=== PATIENT | female | born 1935 | race Caucasian/White ===

== ENCOUNTER 2023-07-22 08:39 | Observation (INO) ==
--- NOTE | 2023-07-22 08:56 | DR.EXTPAIN ---
HPI Time seen Time Seen by Provider: 07/22/23 08:56 Complaint/Symptoms Chief Complaint Doctor Comments: 88 y/o female sent in by EMS for evaluation. Patient seen and evaluated by me here yesterday afternoon, after falling in the shower earlier in the day. Patient fine last p.m. Relative stayed with her last night. She went to check on her this morning. She found the patient awake but unable to speak. Patient was indicating she was having chest discomfort. She was diaphoretic and nonverbal. Relative helped her to the bathroom, patient collapsed on the way, was lowered to the floor, no injuries. EMS called, currently doing better. Patient now awake alert able to speak. No focal defic its. Patient does have history of dementia. Currently denying pain. Nurses notes reviewed Nurses Notes Review: Yes Source History Provided: Patient and Family Member PMH PMH Past Medical History: Dyslipidemia and ND Past Medical History Comment: Dementia Past Surgical History: Yes Surgical History: Angioplasty/Stents, Appendectomy, Cholecystectomy, Ortho Surgery and Spleenectomy Family History Family Medical History: Diabetes Mellitus and ND Social History Does patient currently use any type of tobacco product: No Alcohol Use: None Do you use any recreational Drugs:: No ROS Review of Systems Constitutional: Weakness Eyes: No Symptoms Reported ENTM: No Symptoms Reported Respiratoy: No Symptoms Reported Cardiovascular: See HPI Gastrointestinal/Abdominal: No Symptoms Reported Genitourinary: No Symptoms Reported Neurological: Weakness Musculoskeletal: No Symptoms Reported Integumentary: No Symptoms Reported All Other Systems: Reviewed and Negative PE Vital Signs Vitals: Vital Signs Temperature 97.9 F Pulse Rate 69 Pulse Rate 69 Pulse Rate 69 Pulse Rate 69 Pulse Rate 68 Pulse Rate 68 Pulse Rate 68 Pulse Rate 69 Pulse Rate 69 Pulse Rate 71 Pulse Rate 72 Pulse Rate 71 Pulse Rate 69 Pulse Rate 68 Respiratory Rate 13 Respiratory Rate 16 Respiratory Rate 17 Respiratory Rate 26 Respiratory Rate 15 Respiratory Rate 15 Respiratory Rate 10 Respiratory Rate 20 Respiratory Rate 15 Respiratory Rate 27 Respiratory Rate 20 Respiratory Rate 21 Respiratory Rate 18 Respiratory Rate 10 Blood Pressure 117/63 Blood Pressure 117/63 Blood Pressure 126/59 Blood Pressure 139/63 O2 Sat by Pulse Oximetry 99 O2 Sat by Pulse Oximetry 98 O2 Sat by Pulse Oximetry 98 O2 Sat by Pulse Oximetry 98 O2 Sat by Pulse Oximetry 100 O2 Sat by Pulse Oximetry 98 O2 Sat by Pulse Oximetry 99 O2 Sat by Pulse Oximetry 98 O2 Sat by Pulse Oximetry 96 O2 Sat by Pulse Oximetry 93 O2 Sat by Pulse Oximetry 95 O2 Sat by Pulse Oximetry 98 O2 Sat by Pulse Oximetry 98 O2 Sat by Pulse Oximetry 98 General General Appearance: Alert and In No Apparent Distress Head Head Exam: Normal Inspection, Atraumatic and Normocephalic Eyes Eye exam: PERRL and EOMI ENT ENT Exam: Normal Oropharynx and Mucous Membranes Moist Neck Neck Exam: Normal Inspection; negative Tenderness Respiratory Respiratory Exam: Normal Lung Sounds Bilat; negative Accessory Muscle Use or Respiratory Distress Cardiovascular Cardiovascular Exam: Regular Rate, Normal Rhythm and Normal Heart Sounds Abdominal Exam Abdominal Exam: Normal Bowel Sounds and Soft; negative Tenderness Extremities Extremities Exam: Full ROM; negative Tenderness Back Back Exam: Tenderness (Paralumbar region) Neurological Neurological Exam: Alert, Oriented X3 and CN II-XII Intact; negative Motor Sensory Deficit Skin Skin Exam: Warm and Dry COURSE Treatment Treatment: 88-year-old female with near syncope this a.m., was complaining of chest pain and was diaphoretic. Currently doing much better. History of dementia, not a good historian. Her son is present. Workup initiated. Labs overall acceptable. CT of the head, chest x-ray unremarkable for acute abn ormalities. Cardiac workup negative. Patient is positive for COVID. Will admit to the hospital for further evaluation in view of her near syncopal episode and possible chest pain this a.m.. Family is staying with patient as she has dementia. Dr. Arguelles aware through, his nurses, of the admission. ROR Labs Reviewed Laboratory Results Reviewed?: Yes 07/22/23 09:15 07/22/23 09:15 Laboratory: WBC 6.1 X10^3/uL (3.6-10.0) 07/22/23 09:15 RBC 4.03 X10^6/uL (3.5-5.4) 07/22/23 09:15 Hgb 12.1 g/dL (12.0-16.0) 07/22/23 09:15 Hct 36.7 % (36.0-47.0) 07/22/23 09:15 MCV 91.1 fL (80.0-100.0) 07/22/23 09:15 MCH 30.0 pg (27.0-34.0) 07/22/23 09:15 MCHC 32.9 g/dL (33.0-35.0) L 07/22/23 09:15 RDW 14.2 % (11.6-16.5) 07/22/23 09:15 Plt Count 147 X10^3/uL (150.0-450.0) L 07/22/23 09:15 MPV 9.8 fL (7.4-11.0) 07/22/23 09:15 Neut % (Auto) 62.8 % (42.0-75.0) 07/22/23 09:15 Lymph % (Auto) 20.5 % (21.0-51.0) L 07/22/23 09:15 [place] % (Auto) 16.3 % (0.0-13.0) H 07/22/23 09:15 Eos % (Auto) 0.1 % (0.9-2.9) L 07/22/23 09:15 Baso % (Auto) 0.3 % (0.2-1.0) 07/22/23 09:15 Neut # (Auto) 3.8 x10^3/uL (2.2-4.8) 07/22/23 09:15 Lymph # (Auto) 1.3 X10^3/uL (1.3-2.9) 07/22/23 09:15 [place] # (Auto) 1.0 x10^3/uL (0.3-0.8) H 07/22/23 09:15 Eos # (Auto) 0.0 x10^3/uL (0.0-0.2) 07/22/23 09:15 Baso # (Auto) 0.0 X10^3/uL (0.0-0.1) 07/22/23 09:15 Absolute Nucleated RBC 0.2 /100WBC 07/22/23 09:15 Sodium 135 mmol/L (136-145) L 07/22/23 09:15 Corrected Sodium TNP 07/22/23 09:15 Potassium 3.3 mmol/L (3.5-5.1) L 07/22/23 09:15 Chloride 100 mmol/L (98-107) 07/22/23 09:15 Carbon Dioxide 26.7 mmol/L (21-32) 07/22/23 09:15 BUN 18 mg/dL (7-18) 07/22/23 09:15 Creatinine 0.88 mg/dL (0.55-1.02) 07/22/23 09:15 Est GFR (MDRD) Af Amer > 60 (>60) 07/22/23 09:15 Est GFR (MDRD) Non-Af > 60 (>60) 07/22/23 09:15 Glucose 92 mg/dL (65-99) 07/22/23 09:15 Calcium 8.9 mg/dL (8.5-10.1) 07/22/23 09:15 Corrected Calcium 9.5 mg/dL (8.5-10.1) 07/22/23 09:15 Magnesium 1.8 mg/dL (2.0-2.9) L 07/22/23 10:59 Total Bilirubin 0.70 mg/dL (0.2-1.0) 07/22/23 09:15 AST 30 Units/L (15-37) 07/22/23 09:15 ALT 15 Units/L (12-78) 07/22/23 09:15 Alkaline Phosphatase 87 Units/L (46-116) 07/22/23 09:15 Troponin I High Sens 21.8 ng/L (4.0-60.0) 07/22/23 10:59 Total Protein 7.4 g/dL (6.4-8.2) 07/22/23 09:15 Albumin 3.3 g/dL (3.4-5.0) L 07/22/23 09:15 Globulin 4.1 g/dL (2.5-4.5) 07/22/23 09:15 Albumin/Globulin Ratio 0.8 Ratio (1.1-2.1) L 07/22/23 09:15 Lipase 34 Units/L (16-77) 07/22/23 09:15 SARS-CoV-2 (PCR) Positive (NEGATIVE) A 07/22/23 09:28 Influenza Type A (PCR) Negative (NEGATIVE) 07/22/23 09:28 Influenza Type B (PCR) Negative (NEGATIVE) 07/22/23 09:28 RSV (PCR) Negative (NEGATIVE) 07/22/23 09:28 XRAY XRAY Interpreted by: Both X-ray Results: EXAM: CHEST, 1 VIEW HISTORY: NEAR SYNCOPE; PMH:HTN PSH: CHRISTAL HIPS, GB COMPARISON: Chest radiograph 05/08/2022. TECHNIQUE: AP view of the chest FINDINGS: The cardiac and mediastinal contours are normal in size. Moderate athero sclerotic plaque of the aortic knob. Lungs are hyperexpanded. There are mild bilateral scattered interstitial opacities. No definite pleural effusion or pneumothorax. IMPRESSION: Hyperexpanded lungs suggests COPD. Interstitial opacities are likely chronic. THIS IS AN ELECTRONICALLY VERIFIED FINAL REPORT 07/22/2023 10:03 AM - Electronically signed by Candido Han MD EXAM: CHEST, 1 VIEW HISTORY: NEAR SYNCOPE; PMH:HTN PSH: CHRISTAL HIPS, GB COMPARISON: Chest radiograph 05/08/2022. TECHNIQUE: AP view of the chest FINDINGS: The cardiac and mediastinal contours are normal in size. Moderate athero sclerotic plaque of the aortic knob. Lungs are hyperexpanded. There are mild bilateral scattered interstitial opacities. No definite pleural effusion or pneumothorax. IMPRESSION: Hyperexpanded lungs suggests COPD. Interstitial opacities are likely chronic. THIS IS AN ELECTRONICALLY VERIFIED FINAL REPORT 07/22/2023 10:03 AM - Electronically signed by Candido Han MD EKG Rate: 71 [place]: Normal Rhythm: NSR ST: Nonsp Opioid Opioid Risk Tool Age (Ted box if 16-45): No History of Preadolescent Sexual Abuse: No Total: 0 Total Score Risk Category: Low Risk Copyright: Wilbert SUN predicting aberrant behaviors Discharge Plan Diagnosis Discharge Problem: Near syncope, Chest pain, COVID-19 virus infection Discharge Plan Patient Disposition: ADMITTED INPATIENT Condition: Stable
[2023-07-22] MEDS ORDERED: NS 500 ML IV 500 ML IV ONE ×2 (08:57→09:01)
--- NOTE | 2023-07-22 09:09 | EKG ---
Test Reason : syncopal episode Blood Pressure : */* mmHG Vent. Rate : 71 BPM Atrial Rate : 71 BPM P-R Int : 128 ms QRS Dur : 80 ms QT Int : 390 ms P-R-T Axes : 69 63 -41 degrees QTc Int : 423 ms Sinus rhythm with premature atrial complexes with aberrant conduction Possible Inferior infarct , age undetermined Abnormal ECG No previous ECGs available Confirmed by Zach Wilson MD ([id number]) on 07/22/2023 1:53:57 PM Referred By: Confirmed By: Zach Wilson MD
[2023-07-22 09:56] LABS: BASOPHILS % (AUTO) 0.3 % (0.2-1.0); EOSINOPHILS % (AUTO) 0.1 % (0.9-2.9); HEMATOCRIT 36.7 % (36.0-47.0); HEMOGLOBIN 12.1 g/dL (12.0-16.0); LYMPHOCYTES # (AUTO) 1.3 X10^3/uL (1.3-2.9); LYMPHOCYTES % (AUTO) 20.5 % (21.0-51.0); MEAN CORPUSCULAR HGB CONC 32.9 g/dL (33.0-35.0); MEAN CORPUSCULAR VOLUME 91.1 fL (80.0-100.0); MEAN PLATELET VOLUME 9.8 fL (7.4-11.0); MONOCYTES % (AUTO) 16.3 % (0.0-13.0); NEUTROPHILS # (AUTO) 3.8 x10^3/uL (2.2-4.8); NEUTROPHILS % (AUTO) 62.8 % (42.0-75.0); PLATELET COUNT 147 X10^3/uL (150.0-450.0); RED BLOOD COUNT 4.03 X10^6/uL (3.5-5.4); RED CELL DISTRIBUTION WIDTH 14.2 % (11.6-16.5); WHITE BLOOD COUNT 6.1 X10^3/uL (3.6-10.0)
--- NOTE | 2023-07-22 10:06 | CT ---
EXAM:BRAIN W/O CONHISTORY:TIATECHNIQUE:Axial noncontrast images with coronal and sagittal reformats. Dose reduction procedures were used with mA/kv adjusted for body size.COMPARISON:07/21/2023FINDINGS:Ventr icles are normal in size shape and position. There is decreased attenuation in the periventricular white matter suggestive of small-vessel vascular disease. Mild cortical atrophy is present likely age related. There are no focal areas of abnormal attenuation to suggest recent or remote CVA, hemorrhage, mass lesion, or extra-axial fluid collection. Visualized sinuses are clear. The calvarium is intact. If acute CVA is a strong clinical consideration MRI with diffusion imaging may be of further diagnostic value and should be considered.IMPRESSION:No acute intracranial abnormality identified. See recommendation as aboveMild cortical atrophy likely age-relatedDiffuse small-vessel vascular diseaseTHIS IS AN ELECTRONICALLY VERIFIED FINAL REPORT07/22/2023 10:03 AM - Electronically signed by Lennox Hernandez MD
--- NOTE | 2023-07-22 10:07 | RAD ---
EXAM:CHEST, 1 VIEWHISTORY:NEAR SYNCOPE; PMH:HTNPSH: CHRISTAL HIPS, GBCOMPARISON:Chest radiograph 05/08/2022.TECHNIQUE:AP view of the chestFINDINGS:The cardiac and mediastinal contours are normal in size. Moderate athero sclerotic plaque of the aortic knob. Lungs are hyperexpanded. There are mild bilateral scattered interstitial opacities. No definite pleural effusion or pneumothorax.IMPRESSION:Hyperexpanded lungs suggests COPD. Interstitial opacities are likely chronic.THIS IS AN ELECTRONICALLY VERIFIED FINAL REPORT07/22/2023 10:03 AM - Electronically signed by Candido Han MD
[2023-07-22 10:08] LABS: ALANINE AMINOTRANSFERASE 15 Units/L (12-78); ALBUMIN 3.3 g/dL (3.4-5.0); ALKALINE PHOSPHATASE 87 Units/L (46-116); ASPARTATE AMINO TRANSFERASE 30 Units/L (15-37); BLOOD UREA NITROGEN 18 mg/dL (7-18); CALCIUM 8.9 mg/dL (8.5-10.1); CARBON DIOXIDE 26.7 mmol/L (21-32); CHLORIDE 100 mmol/L (98-107); COR CA(FOR HYPOALB) 9.5 mg/dL (8.5-10.1); CREATININE 0.88 mg/dL (0.55-1.02); GLUCOSE 92 mg/dL (65-99); LIPASE 34 Units/L (16-77); POTASSIUM 3.3 mmol/L (3.5-5.1); SODIUM 135 mmol/L (136-145); TOTAL PROTEIN 7.4 g/dL (6.4-8.2); eGFR NON BLACK RACES > 60 (>60)
[2023-07-22] MEDS ORDERED: CONSULT PHARMACY - POTASSIUM & MAGNESIUM XX SCH ×2 (12:07→14:00)
[2023-07-22] MEDS ORDERED: NS 1,000 ML IV 1,000 ML IV SCH (13:00)
[2023-07-22] MEDS ORDERED: NS + KCL 20 MEQ/L 1,000 ML IV SCH (14:00)
[2023-07-22] MEDS: NS + KCL 20 MEQ/L 1,000 ML with MAGNESIUM SULFATE 50% INJ VIAL 1 G IV SCH ×2 (14:27)
[2023-07-22] MEDS: SOLU-Medrol 40 MG VIAL IVP SCH ×3 (14:29→21:35)
[2023-07-22 16:55] LABS: BILIRUBIN,URINE NEGATIVE (NEGATIVE); BLOOD/HEMOGLOBIN,URINE NEGATIVE (NEGATIVE); GLUCOSE, URINE NEGATIVE (NEGATIVE); KETONES,URINE 1+ (NEGATIVE); LEUKOCYTE ESTERASE ,URINE NEGATIVE (NEGATIVE); NITRITES,URINE NEGATIVE (NEGATIVE); PROTEIN,URINE 1+ (NEGATIVE); UROBILINOGEN,URINE NORMAL (NORMAL)
[2023-07-22 17:11] LABS: APPEARANCE,URINE CLEAR (CLEAR); COLOR,URINE YELLOW (YELLOW); RBC,URINE NONE SEEN /HPF (0-3); SQUAMOUS EPITHELIAL CELL,UR RARE /HPF (NEGATIVE)
[2023-07-22 17:12] LABS: BACTERIA,URINE TRACE /HPF (NEGATIVE); HYALINE CASTS, URINE RARE /LPF (NEGATIVE)
[2023-07-22 17:38] VITALS: BMI 19.2
[2023-07-22] MEDS: LIPITOR TAB 10 MG PO SCH (20:47)
[2023-07-22] MEDS ORDERED: PLAVIX ONE (21:18)
[2023-07-22] MEDS: PLAVIX PO SCH (21:23)
[2023-07-23] MEDS: NS + KCL 20 MEQ/L 1,000 ML with MAGNESIUM SULFATE 50% INJ VIAL 1 G IV SCH ×4 (01:03→03:41)
[2023-07-23] MEDS: SOLU-Medrol 40 MG VIAL IVP SCH ×3 (05:08→21:22)
[2023-07-23 06:54] LABS: BASOPHILS % (AUTO) 0.1 % (0.2-1.0); HEMATOCRIT 37.2 % (36.0-47.0); HEMOGLOBIN 12.1 g/dL (12.0-16.0); LYMPHOCYTES # (AUTO) 0.7 X10^3/uL (1.3-2.9); LYMPHOCYTES % (AUTO) 16.8 % (21.0-51.0); MEAN CORPUSCULAR HEMOGLOBIN 29.7 pg (27.0-34.0); MEAN CORPUSCULAR HGB CONC 32.5 g/dL (33.0-35.0); MEAN CORPUSCULAR VOLUME 91.4 fL (80.0-100.0); MEAN PLATELET VOLUME 9.9 fL (7.4-11.0); MONOCYTES # (AUTO) 0.3 x10^3/uL (0.3-0.8); MONOCYTES % (AUTO) 6.2 % (0.0-13.0); NEUTROPHILS # (AUTO) 3.2 x10^3/uL (2.2-4.8); NEUTROPHILS % (AUTO) 76.9 % (42.0-75.0); PLATELET COUNT 137 X10^3/uL (150.0-450.0); RED BLOOD COUNT 4.08 X10^6/uL (3.5-5.4); RED CELL DISTRIBUTION WIDTH 14.4 % (11.6-16.5); WHITE BLOOD COUNT 4.2 X10^3/uL (3.6-10.0)
[2023-07-23 07:01] LABS: ALANINE AMINOTRANSFERASE 16 Units/L (12-78); ALBUMIN 3.1 g/dL (3.4-5.0); ALKALINE PHOSPHATASE 85 Units/L (46-116); ASPARTATE AMINO TRANSFERASE 29 Units/L (15-37); BLOOD UREA NITROGEN 14 mg/dL (7-18); CALCIUM 8.5 mg/dL (8.5-10.1); CARBON DIOXIDE 27.4 mmol/L (21-32); CHLORIDE 105 mmol/L (98-107); COR CA(FOR HYPOALB) 9.2 mg/dL (8.5-10.1); COR NA(FOR HYPERGLY) 140 mmol/L (136-145); CREATININE 0.69 mg/dL (0.55-1.02); GLUCOSE 146 mg/dL (65-99); MAGNESIUM 2.4 mg/dL (2.0-2.9); POTASSIUM 3.7 mmol/L (3.5-5.1); SODIUM 139 mmol/L (136-145); TOTAL PROTEIN 7.4 g/dL (6.4-8.2); eGFR NON BLACK RACES > 60 (>60)
[2023-07-23] MEDS ORDERED: DUONEB 0.5 MG/3 MG (3 mL) NEB PRN (09:52)
[2023-07-23] MEDS: LOVENOX INJ 40 MG SYR SC SCH (10:03)
[2023-07-23] MEDS: PLAVIX PO SCH ×2 (10:32→20:51)
[2023-07-23] MEDS: LEVAQUIN PREMIX IV 500 MG 500 MG/100 ML BAG IV SCH (10:40)
--- NOTE | 2023-07-23 11:14 | DR.H&P ---
H&P - History & Physical for Day of: H&P Date: 07/22/23 - Chief Complaint Chief Complaint: FALLS, AMS, SOB - History of Present Illness History of Present Illness: IS A 88 YEAR OLD PATIENT OF OURS. HER MEDICAL HX INCLUDES: DYSLIPIDEMIA, MA, DEMENTIA, CARDIAC STENTS, APPENDECTOMY, CHOLECYSTECTOMY, AND SPLEENECTOMY. SHE WAS BROUGHT TO THE ER VIA EMS FOR EVALUATION DUE TO RECENT FALLS, ALTERED MENTAL STATUS, DIAPHORESIS, AND SLURRED SPEECH. PATIENTS DAUGHTER REPORTS THAT PATIENT FELL IN THE SHOWER ON 07/19 AND AGAIN ON 07/20. DAUGHTER REPORTS THAT WHEN SHE CHECKED ON HER MOM ON THE MORNING OF 07/22, PATIENT WAS DIAPHORETIC AND HAD SLURRED SPEECH. DAUGHTER HELPED THE PATIENT AMBULATE TO THE BATHROOM AND PATIENT COLLAPSED ON THE WAY THERE. EMS WAS CALLED. ON ARRIVAL TO THE HOSPITAL, PATIENT WAS AWAKE, ALERT, AND ABLE TO SPEAK. NO FOCAL DEFICITS WERE NOTED. PATIENT DOES DENY PAIN, BUT ADMITS TO WEAKNESS AND OCCASIONAL SHORTNESS OF BREATH. ON ARRIVAL TO THE HOSPITAL, HER VITALS WERE: 97.9-69-18-98%-139/63. LABS WERE OBTAINED. WBC 6.1, RBC 4.03, HGB 12.1, HCT 36.7, PLT COUNT 147, D-DIMER 3.33, SODIUM 135, POTASSIUM 3.3, CHLORIDE 100, BUN 18, CREATININE 0.88, GLUCOSE 92, CALCIUM 8.9, MAGNESIUM 1.8, TOTAL BILI 0.70, AST 30, ALT 15, ALK PHOS 87, TROPONIN 22.8, TOTAL PROTEIN 7.4, ALBUMIN 3.3, D- DIMER 3.33. URINALYSIS WAS OBTAINED AND WAS UNREMARKABLE. COVID-19 WAS POSITIVE. INFLUENZA AND RSV NEGATIVE. A CHEST XRAY WAS OBTAINED AND REVEALED: Hyperexpanded lungs suggests COPD. Interstitial opacities are likely chronic. BRAIN CT WAS OBTAINED AND REVEALED: No acute intracranial abnormality identified. Mild cortical atrophy likely age-related. Diffuse small-vessel vascular disease. EKG REVEALED: SINUS RHYTHM WITH PREMATURE ATRIAL COMPLEXES, HR 71 BPM. IN THE ER, SHE WAS GIVEN A NORMAL SALINE BOLUS AND THEN STARTED ON N ORMAL SALINE WITH POTASSIUM AT 75 ML/HR. SHE WAS ADMITTED TO THE HOSPITAL OBSERVATION STATUS FOR FURTHER EVALUATION AND TREATMENT OF COVID-19, ACUTE BRONCHITIS, GENERALIZED WEAKNESS, RECENT FALL, SYNCOPE. SHE WAS STARTED ON NORMAL SALINE WITH 20MEQ POTASSIUM AT 75 ML/HR, LEVAQUIN 500MG IV DAILY, PAXLOVID, SOLU-MEDROL 40MG IV Q8H, DUONEBS TID PRN, LOVENOX 75MG DAILY. WE WILL RESUME HER HOME MEDICATIONS OF LIPITOR, PLAVIX, AND ZYPREXA. OTHERWISE, WE WILL FOLLOW UP WITH AM LABS AND CONTINUE TO MONITOR. TIME SPENT ON CLINICAL ASSESSMENT, REVIEWING LABS AND IMAGING, DECISION MAKING, AND DOCUMENTATION GREATER THAN 75 MINUTES. - Past Medical History Past Medical History: Dementia, Dyslipidemia, MA - Past Surgical History Surgical History: Appendectomy, Cholecystectomy, Ortho Surgery - Family History Family Medical History: Diabetes Mellitus, Cancer, MA, Coronary Artery Disease - Social History Does patient currently use any type of tobacco product: No Have you used tobacco products in the last 12 months: No Type of Tobacco Use: None Does any household member use tobacco: No Alcohol Use: None Drug Use: None - Review of Systems Constitutional: Weakness Eyes: No Symptoms Reported ENT: No Symptoms Reported Respiratory: Shortness of Breath, SOB with Excertion Cardiovascular: No Symptoms Reported Gastrointestinal: No Symptoms Reported Genitourinary: No Symptoms Reported Musculoskeletal: No Symptoms Reported Skin: No Symptoms Reported Neurological: See HPI, Weakness, Change in Speech - Physical Exam Vital Signs: Vital Signs Temperature 98.7 F Temperature 97.6 F Temperature 96 F Temperature 95.9 F Pulse Rate [Left Brachial] 64 Pulse Rate [Left Brachial] 55 Respiratory Rate 20 Respiratory Rate 18 Blood Pressure [Left Arm] 142/62 Blood Pressure [Left Arm] 120/83 O2 Sat by Pulse Oximetry 97 O2 Sat by Pulse Oximetry 97 Oriented: Normal Eyes: Normal Ear: Normal Nose: Normal Throat: Normal Respiratory: Diminished Throughout Cardiovascular: Normal : Normal Auscultation: Bowel Sounds: Normal Palpation: Normal Tenderness: Normal Skin: Normal Musculoskeletal: Normal Psychiatric: Normal Mood Description: Calm Affect: Normal Speech Pattern: Clear - Assessment/Plan (1) COVID-19 virus infection Status: Acute Plan: ADMIT, SUPPLEMENTAL OXYGEN, NORMAL SALINE WITH 20MEQ POTASSIUM AT 75 ML/HR, LEVAQUIN 500MG IV DAILY, PAXLOVID, SOLU-MEDROL 40MG IV Q8H, DUONEBS TID PRN, LOVENOX 75MG DAILY. WE WILL RESUME HER HOME MEDICATIONS OF LIPITOR, PLAVIX, AND ZYPREXA. (2) Acute bronchitis Qualifiers: Bronchitis organism: unspecified organism Qualified Code(s): J20.9 - Acute bronchitis, unspecified Status: Acute (3) History of recent fall Status: Acute (4) Near syncope Status: Acute (5) Generalized weakness Status: Acute (6) Dementia Qualifiers: Dementia type: unspecified type Dementia severity: unspecified severity Dementia behavioral or psychological symptom: without behavioral, psychotic, or mood disturbance or anxiety Qualified Code(s): F03.90 - Unspecified dementia, unspecified severity, without behavioral disturbance, psychotic disturbance, mood disturbance, and anxiety Status: Chronic (7) Dyslipidemia Status: Chronic (8) CAD (coronary artery disease) Qualifiers: Coronary Disease-Associated Artery/Lesion type: [place] artery [place] vs. transplanted heart: [place] heart Associated angina: unspecified whether angina present Qualified Code(s): I25.10 - Atherosclerotic heart disease of [place] coronary artery without angina pectoris Status: Chronic - Allergies Allergies/Adverse Reactions: Allergies Allergy/AdvReac Type Severity Reaction Status Date / Time No Known Allergies Allergy Verified 07/21/23 15:03 - Medications Home Medications: Home Medications Medication Instructions Recorded Confirmed atorvastatin 10 mg tablet 10 mg PO QDAY 07/21/23 07/22/23 clopidogrel 75 mg tablet 75 mg PO QDAY 07/21/23 07/22/23 olanzapine 2.5 mg tablet 2.5 mg PO QPM 07/21/23 07/22/23 Previous Rx's Medication Instructions Recorded nirmatrelvir 300 mg (150 mg See Rx Instructions .Route 07/23/23 x2)-ritonavir 100 mg tablet,dose .COMPLEX #1 ea pack (Paxlovid)
--- NOTE | 2023-07-23 12:27 | PCM.PROG ---
Progress Note - Progress Note for Day of Date of Exam: 07/23/23 - Subjective Subjective: IS CURRENTLY OBSERVATION STATUS FOR TREATMENT OF COVID- 19, ACUTE BRONCHITIS, RECENT FALL, NEAR SYNCOPE, AND GENERALIZED WEAKNESS. MEDICAL HX INCLUDES: DEMENTIA, DYSLIPIDEMIA, HX OF ME. TODAY, PATIENT IS ALERT AND ORIENTED, LYING IN BED ON MORNING ROUNDS. SHE CONTINUES TO COMPLAIN OF WEAKNESS AND SHORTNESS OF BREATH AT TIMES. SHE HAS HAD AN OCCASIONAL COUGH. ON EXAMINATION, HEART IS REGULAR IN RATE AND RHYTHM. BILATERAL LUNGS ARE NOTED WITH DIMINISHED LUNG SOUNDS THROUGHOUT. ABDOMEN IS ROUND, SOFT, AND NON-TENDER WITH NORMAL BOWEL SOUNDS NOTED IN ALL QUADRANTS. GOOD RANGE OF MOTION NOTED TO UPPER AND LOWER EXTREMITIES WITH NO EDEMA NOTED. HER VITALS THIS MORNING ARE: 98.7-64 -20-97%-142/62. LABS WERE OBTAINED. WBC 4.2, RBC 4.08, HGB 12.1, HCT 37.2, PLT COUNT 137, SODIUM 139, POTASSIUM 3.7, CHLORIDE 105, BUN 14, CREATININE 0.69, GLUCOSE 146, CALCIUM 8.5, MAGNESIUM 2.4, TOTAL BILI 0.50, AST 29, ALT 16, ALK PHOS 85, CRP 48, BNP 221, TOTAL PROTEIN 7.4, ALBUMIN 3.1. SHE IS CURRENTLY RECEIVING NORMAL SALINE WITH 20MEQ POTASSIUM AT 75 ML/HR, LEVAQUIN 500MG IV DAILY, PAXLOVID, SOLU-MEDROL 40MG IV Q8H, DUONEBS TID PRN, LOVENOX 75MG DAILY. WE RESUMED HER HOME MEDICATIONS OF LIPITOR, PLAVIX, AND ZYPREXA. OTHERWISE, WE PLAN TO FOLLOW UP WITH AM LABS AND CONTINUE TO MONITOR. TIME SPENT ON CLINICAL ASSESSMENT, REVIEWING LABS AND IMAGING, DECISION MAKING, AND DOCUMENTATION GRE ATER THAN 45 MINUTES. - Past Medical Family Social History Past Med/Fam/Surg Hx: No changes since H&P Allergies: Allergies No Known Allergies Allergy (Verified 07/21/23 15:03) - Review of Systems ROS: No change since H&P - Vital Signs and I&O's Vital Signs: Vital Signs Temperature 98.7 F Temperature 97.6 F Temperature 96 F Temperature 95.9 F Pulse Rate [Left Brachial] 64 Respiratory Rate 20 Blood Pressure [Left Arm] 142/62 O2 Sat by Pulse Oximetry 97 Intake and Output: Intake & Output 07/21/23 07/22/23 07/23/23 07/24/23 11:59 11:59 11:59 11:59 Intake Total 2455 / 2455 Balance 2455 / 2455 - Physical Exam Oriented: Normal Eyes: Normal Ear: Normal Nose: Normal Throat: Normal Cardiovascular: Normal : Normal Auscultation: Bowel Sounds: Normal Palpation: Normal Tenderness: Normal Skin: Normal Musculoskeletal: Normal Psychiatric: Normal Mood Description: Calm Affect: Normal Speech Pattern: Clear - Laboratory and Diagnostics Result Diagrams: 07/23/23 05:17 07/23/23 05:17 Labs: Laboratory WBC 4.2 X10^3/uL (3.6-10.0) 07/23/23 05:17 RBC 4.08 X10^6/uL (3.5-5.4) 07/23/23 05:17 Hgb 12.1 g/dL (12.0-16.0) 07/23/23 05:17 Hct 37.2 % (36.0-47.0) 07/23/23 05:17 MCV 91.4 fL (80.0-100.0) 07/23/23 05:17 MCH 29.7 pg (27.0-34.0) 07/23/23 05:17 MCHC 32.5 g/dL (33.0-35.0) L 07/23/23 05:17 RDW 14.4 % (11.6-16.5) 07/23/23 05:17 Plt Count 137 X10^3/uL (150.0-450.0) L 07/23/23 05:17 MPV 9.9 fL (7.4-11.0) 07/23/23 05:17 Neut % (Auto) 76.9 % (42.0-75.0) H 07/23/23 05:17 Lymph % (Auto) 16.8 % (21.0-51.0) L 07/23/23 05:17 [place] % (Auto) 6.2 % (0.0-13.0) 07/23/23 05:17 Eos % (Auto) 0.0 % (0.9-2.9) L 07/23/23 05:17 Baso % (Auto) 0.1 % (0.2-1.0) L 07/23/23 05:17 Neut # (Auto) 3.2 x10^3/uL (2.2-4.8) 07/23/23 05:17 Lymph # (Auto) 0.7 X10^3/uL (1.3-2.9) L 07/23/23 05:17 [place] # (Auto) 0.3 x10^3/uL (0.3-0.8) 07/23/23 05:17 Eos # (Auto) 0.0 x10^3/uL (0.0-0.2) 07/23/23 05:17 Baso # (Auto) 0.0 X10^3/uL (0.0-0.1) 07/23/23 05:17 Absolute Nucleated RBC 0.1 /100WBC 07/23/23 05:17 D-Dimer 3.33 ug/ml (0.0-0.57) H 07/23/23 05:17 Sodium 139 mmol/L (136-145) 07/23/23 05:17 Corrected Sodium 140 mmol/L (136-145) 07/23/23 05:17 Potassium 3.7 mmol/L (3.5-5.1) 07/23/23 05:17 Chloride 105 mmol/L (98-107) 07/23/23 05:17 Carbon Dioxide 27.4 mmol/L (21-32) 07/23/23 05:17 BUN 14 mg/dL (7-18) 07/23/23 05:17 Creatinine 0.69 mg/dL (0.55-1.02) 07/23/23 05:17 Est GFR (MDRD) Af Amer > 60 (>60) 07/23/23 05:17 Est GFR (MDRD) Non-Af > 60 (>60) 07/23/23 05:17 Glucose 146 mg/dL (65-99) H 07/23/23 05:17 Lactic Acid 0.8 mmol/L (0.4-2.0) 07/23/23 05:25 Calcium 8.5 mg/dL (8.5-10.1) 07/23/23 05:17 Corrected Calcium 9.2 mg/dL (8.5-10.1) 07/23/23 05:17 Magnesium 2.4 mg/dL (2.0-2.9) 07/23/23 05:17 Total Bilirubin 0.50 mg/dL (0.2-1.0) 07/23/23 05:17 AST 29 Units/L (15-37) 07/23/23 05:17 ALT 16 Units/L (12-78) 07/23/23 05:17 Alkaline Phosphatase 85 Units/L (46-116) 07/23/23 05:17 Troponin I High Sens 21.8 ng/L (4.0-60.0) 07/22/23 10:59 C-Reactive Protein 48.00 mg/L (0-3.0) H 07/23/23 05:17 B-Natriuretic Peptide 221 pg/mL (0-79) H 07/23/23 05:17 Total Protein 7.4 g/dL (6.4-8.2) 07/23/23 05:17 Albumin 3.1 g/dL (3.4-5.0) L 07/23/23 05:17 Globulin 4.3 g/dL (2.5-4.5) 07/23/23 05:17 Albumin/Globulin Ratio 0.7 Ratio (1.1-2.1) L 07/23/23 05:17 Lipase 34 Units/L (16-77) 07/22/23 09:15 Specimen Type Clean catch urine 07/22/23 16:20 Urine Color Yellow (YELLOW) 07/22/23 16:20 Urine Appearance Clear (CLEAR) 07/22/23 16:20 Urine pH 5.0 (5.0 - 8.0) 07/22/23 16:20 Ur Specific [place] 1.020 (1.000-1.030) 07/22/23 16:20 Urine Protein 1+ (NEGATIVE) 07/22/23 16:20 Urine Glucose (UA) Negative (NEGATIVE) 07/22/23 16:20 Urine Ketones 1+ (NEGATIVE) 07/22/23 16:20 Urine Blood Negative (NEGATIVE) 07/22/23 16:20 Urine Nitrite Negative (NEGATIVE) 07/22/23 16:20 Urine Bilirubin Negative (NEGATIVE) 07/22/23 16:20 Urine Urobilinogen Normal (NORMAL) 07/22/23 16:20 Ur Leukocyte Esterase Negative (NEGATIVE) 07/22/23 16:20 Urine RBC None seen /HPF (0-3) 07/22/23 16:20 Urine WBC 3-5 /HPF (0-5) 07/22/23 16:20 Ur Squamous Epith Cells Rare /HPF (NEGATIVE) 07/22/23 16:20 Amorphous Sediment Trace /HPF (NEGATIVE) 07/22/23 16:20 Urine Bacteria Trace /HPF (NEGATIVE) 07/22/23 16:20 Hyaline Casts Rare /LPF (NEGATIVE) 07/22/23 16:20 Urine Mucus Rare /HPF (NEGATIVE) 07/22/23 16:20 Ur Culture Indicated? No/not indicated 07/22/23 16:20 SARS-CoV-2 (PCR) Positive (NEGATIVE) A 07/22/23 09:28 Influenza Type A (PCR) Negative (NEGATIVE) 07/22/23 09:28 Influenza Type B (PCR) Negative (NEGATIVE) 07/22/23 09:28 RSV (PCR) Negative (NEGATIVE) 07/22/23 09:28 - Plan (1) COVID-19 virus infection Status: Acute Plan: SUPPLEMENTAL OXYGEN, NORMAL SALINE WITH 20MEQ POTASSIUM AT 75 ML/HR, LEVAQUIN 500MG IV DAILY, PAXLOVID, SOLU-MEDROL 40MG IV Q8H, DUONEBS TID PRN, LOVENOX 75MG DAILY. WE WILL RESUME HER HOME MEDICATIONS OF LIPITOR, PLAVIX, AND ZYPREXA. (2) Acute bronchitis Status: Acute Qualifiers: Bronchitis organism: unspecified organism Qualified Code(s): J20.9 - Acute bronchitis, unspecified (3) History of recent fall Status: Acute (4) Near syncope Status: Acute (5) Generalized weakness Status: Acute (6) Dementia Status: Chronic Qualifiers: Dementia type: unspecified type Dementia severity: unspecified severity Dementia behavioral or psychological symptom: without behavioral, psychotic, or mood disturbance or anxiety Qualified Code(s): F03.90 - Unspecified dementia, unspecified severity, without behavioral disturbance, psychotic disturbance, mood disturbance, and anxiety (7) Dyslipidemia Status: Chronic (8) CAD (coronary artery disease) Status: Chronic Qualifiers: Coronary Disease-Associated Artery/Lesion type: [place] artery [place] vs. transplanted heart: [place] heart Associated angina: unspecified whether angina present Qualified Code(s): I25.10 - Atherosclerotic heart disease of [place] coronary artery without angina pectoris
[2023-07-23] MEDS: PATIENT'S HOME MEDICATION PO SCH ×2 (15:13→20:51)
[2023-07-23] MEDS: NS + KCL 20 MEQ/L 1,000 ML IV SCH (15:53)
[2023-07-23] MEDS: LIPITOR TAB 10 MG PO SCH (20:51)
[2023-07-24] MEDS: NS + KCL 20 MEQ/L 1,000 ML IV SCH ×3 (01:11→13:23)
[2023-07-24] MEDS: SOLU-Medrol 40 MG VIAL IVP SCH ×3 (05:10→21:17)
[2023-07-24 06:16] LABS: BASOPHILS % (AUTO) 0.1 % (0.2-1.0); HEMATOCRIT 32.9 % (36.0-47.0); LYMPHOCYTES # (AUTO) 0.7 X10^3/uL (1.3-2.9); LYMPHOCYTES % (AUTO) 5.5 % (21.0-51.0); MEAN CORPUSCULAR HGB CONC 33.4 g/dL (33.0-35.0); MEAN CORPUSCULAR VOLUME 89.8 fL (80.0-100.0); MEAN PLATELET VOLUME 9.9 fL (7.4-11.0); MONOCYTES # (AUTO) 0.4 x10^3/uL (0.3-0.8); MONOCYTES % (AUTO) 3.3 % (0.0-13.0); NEUTROPHILS # (AUTO) 10.9 x10^3/uL (2.2-4.8); NEUTROPHILS % (AUTO) 91.1 % (42.0-75.0); PLATELET COUNT 139 X10^3/uL (150.0-450.0); RED BLOOD COUNT 3.66 X10^6/uL (3.5-5.4); RED CELL DISTRIBUTION WIDTH 13.9 % (11.6-16.5); WHITE BLOOD COUNT 11.9 X10^3/uL (3.6-10.0)
[2023-07-24 06:36] LABS: ALANINE AMINOTRANSFERASE 17 Units/L (12-78); ALBUMIN 2.9 g/dL (3.4-5.0); ALKALINE PHOSPHATASE 77 Units/L (46-116); ASPARTATE AMINO TRANSFERASE 29 Units/L (15-37); BLOOD UREA NITROGEN 13 mg/dL (7-18); CALCIUM 8.3 mg/dL (8.5-10.1); CARBON DIOXIDE 22.1 mmol/L (21-32); CHLORIDE 107 mmol/L (98-107); COR CA(FOR HYPOALB) 9.2 mg/dL (8.5-10.1); COR NA(FOR HYPERGLY) 139 mmol/L (136-145); CREATININE 0.76 mg/dL (0.55-1.02); GLUCOSE 142 mg/dL (65-99); MAGNESIUM 2.1 mg/dL (2.0-2.9); POTASSIUM 3.8 mmol/L (3.5-5.1); SODIUM 138 mmol/L (136-145); TOTAL PROTEIN 6.9 g/dL (6.4-8.2); eGFR NON BLACK RACES > 60 (>60)
[2023-07-24 07:15] LABS: BAND NEUTROPHILS % 11 % (0-10); PLATELET MORPHOLOGY COMMENT NORMAL (NORMAL)
--- NOTE | 2023-07-24 09:03 | RAD ---
EXAM:Portable chestHISTORY:Shortness of breathCOMPARISON:07/22/2023FINDINGS:Hear t size is normal. Kera are normal. Aorta is calcified. Biapical pleural-parenchymal scarring is present and unchanged. Lungs are mildly hyperinflated but free of acute alveolar infiltrates. Mild chronic interstitial lung changes are present. No pleural effusions are identified. Bony thorax is unremarkable.IMPRESSION:No significant change from the prior examinationTHIS IS AN ELECTRONICALLY VERIFIED FINAL REPORT07/24/2023 8:59 AM - Electronically signed by Lennox Hernandez MD
[2023-07-24] MEDS: LOVENOX INJ 40 MG SYR SC SCH (10:45)
[2023-07-24] MEDS: LEVAQUIN PREMIX IV 500 MG 500 MG/100 ML BAG IV SCH (10:45)
[2023-07-24] MEDS: PLAVIX PO SCH (10:46)
[2023-07-24] MEDS: PATIENT'S HOME MEDICATION PO SCH ×2 (10:46→21:55)
--- NOTE | 2023-07-24 11:18 | PCM.PROG ---
Progress Note - Progress Note for Day of Date of Exam: 07/24/23 - Subjective Subjective: IS CURRENTLY OBSERVATION STATUS FOR TREATMENT OF COVID- 19, ACUTE BRONCHITIS, RECENT FALL, NEAR SYNCOPE, AND GENERALIZED WEAKNESS. MEDICAL HX INCLUDES: DEMENTIA, DYSLIPIDEMIA, HX OF GA. TODAY, PATIENT IS ALERT AND ORIENTED, LYING IN BED ON MORNING ROUNDS. SHE CONTINUES TO COMPLAIN OF WEAKNESS, AND SHORTNESS OF BREATH AT TIMES. SHE HAS HAD AN OCCASIONAL COUGH AND ALSO REPORTS GENERALIZED BODY ACHES. ON EXAMINATION, SCATTERED BRUISING NOTED. HEART IS REGULAR IN RATE AND RHYTHM. BILATERAL LUNGS ARE NOTED WITH DIMINISHED LUNG SOUNDS THROUGHOUT. ABDOMEN IS ROUND, SOFT, AND NON-TENDER WITH NORMAL BOWEL SOUNDS NOTED IN ALL QUADRANTS. GOOD RANGE OF MOTION NOTED TO UPPER AND LOWER EX TREMITIES WITH NO EDEMA NOTED. THERE IS BRUISING AND TENDERNESS OF LOWER EXTREMITIES AND FEET NOTED. HER VITALS THIS MORNING ARE: 98.5-65-20-95%-140/65. LABS WERE OBTAINED. WBC 11.9, RBC 3.66, HGB 11.0, HCT 32.9, PLT COUNT 139, D- DIMER 3.33, SODIUM 138, POTASSIUM 3.8, CHLORIDE 107, CARBON DIOXIDE 22.1, BUN 13, CREATININE 0.76, GLUCOSE 142, CALCIUM 8.3, MAGNESIUM 2.1, TOTAL BILI 0.40, AST 29, ALT 17, ALK PHOS 77, CRP 22.20, BNP 509, TOTAL PROTEIN 6.9, ALBUMIN 2.9. A CHEST XRAY WAS REPEATED AND REVEALED: Heart size is normal. Kera are normal. Aorta is calcified. Biapical pleural-parenchymal scarring is present and unchanged. Lungs are mildly hyperinflated but free of acute alveolar infiltr ates. Mild chronic interstitial lung changes are present. No pleural effusions are identified. Bony thorax is unremarkable. SHE IS CURRENTLY RECEIVING NORMAL SALINE WITH 20MEQ POTASSIUM AT 75 ML/HR, LEVAQUIN 500MG IV DAILY, PAXLOVID, SOLU-MEDROL 40MG IV Q8H, DUONEBS TID PRN, LOVENOX 75MG DAILY. WE RESUMED HER HOME MEDICATIONS OF LIPITOR, PLAVIX, AND ZYPREXA. WE WILL OBTAIN A CHEST CTA TO RULE OUT PE AND LOWER EXTREMITY VENOUS DOPPLERS TO RULE OUT DVT. WE WILL HAVE PHYSICAL THERAPY EVALUATE HER. OTHERWISE, WE PLAN TO FOLLOW UP WITH AM LABS AND CONTINUE TO MONITOR. TIME SPENT ON CLINICAL ASSESSMENT, REVIEWING LABS AND IMAGING, DECISION MAKING, AND DOCUMENTATION GREATER THAN 45 MINUTES. - Past Medical Family Social History Past Med/Fam/Surg Hx: No changes since H&P Allergies: Allergies No Known Allergies Allergy (Verified 07/21/23 15:03) - Review of Systems ROS: No change since H&P - Vital Signs and I&O's Vital Signs: Vital Signs Temperature 97.5 F Temperature 97.5 F Pulse Rate [Left Brachial] 65 Pulse Rate [Left Brachial] 89 Respiratory Rate 20 Respiratory Rate 20 Blood Pressure [Left Arm] 142/75 Blood Pressure [Right Arm] 140/65 O2 Sat by Pulse Oximetry 95 O2 Sat by Pulse Oximetry 99 Intake and Output: Intake & Output 07/21/23 07/22/23 07/23/23 07/24/23 11:59 11:59 11:59 11:59 Intake Total 2455 / 2455 4339 / 4339 Output Total 500 / 500 Balance 2455 / 2455 3839 / 3839 - Physical Exam Oriented: Normal Eyes: Normal Ear: Normal Nose: Normal Throat: Normal Cardiovascular: Normal : Normal Auscultation: Bowel Sounds: Normal Palpation: Normal Tenderness: Normal Skin: Normal Musculoskeletal: Normal Psychiatric: Normal Mood Description: Calm Affect: Normal Speech Pattern: Clear, Appropriate - Laboratory and Diagnostics Result Diagrams: 07/24/23 05:40 07/24/23 05:40 Labs: Laboratory WBC 11.9 X10^3/uL (3.6-10.0) H 07/24/23 05:40 RBC 3.66 X10^6/uL (3.5-5.4) 07/24/23 05:40 Hgb 11.0 g/dL (12.0-16.0) L 07/24/23 05:40 Hct 32.9 % (36.0-47.0) L 07/24/23 05:40 MCV 89.8 fL (80.0-100.0) 07/24/23 05:40 MCH 30.0 pg (27.0-34.0) 07/24/23 05:40 MCHC 33.4 g/dL (33.0-35.0) 07/24/23 05:40 RDW 13.9 % (11.6-16.5) 07/24/23 05:40 Plt Count 139 X10^3/uL (150.0-450.0) L 07/24/23 05:40 Plt Count Comment Decreased (ADEQUATE) A 07/24/23 05:40 MPV 9.9 fL (7.4-11.0) 07/24/23 05:40 Neut % (Auto) 91.1 % (42.0-75.0) H 07/24/23 05:40 Lymph % (Auto) 5.5 % (21.0-51.0) L 07/24/23 05:40 [place] % (Auto) 3.3 % (0.0-13.0) 07/24/23 05:40 Eos % (Auto) 0.0 % (0.9-2.9) L 07/24/23 05:40 Baso % (Auto) 0.1 % (0.2-1.0) L 07/24/23 05:40 Neut # (Auto) 10.9 x10^3/uL (2.2-4.8) H 07/24/23 05:40 Lymph # (Auto) 0.7 X10^3/uL (1.3-2.9) L 07/24/23 05:40 [place] # (Auto) 0.4 x10^3/uL (0.3-0.8) 07/24/23 05:40 Eos # (Auto) 0.0 x10^3/uL (0.0-0.2) 07/24/23 05:40 Baso # (Auto) 0.0 X10^3/uL (0.0-0.1) 07/24/23 05:40 Absolute Nucleated RBC 0.0 /100WBC 07/24/23 05:40 Total Counted 100 07/24/23 05:40 Neutrophils % (Manual) 85 % (39-76) H 07/24/23 05:40 Band Neutrophils % 11 % (0-10) H 07/24/23 05:40 Lymphocytes % (Manual) 4 % (13-43) L 07/24/23 05:40 Plt Morphology Comment Normal (NORMAL) 07/24/23 05:40 RBC Morphology Normal (NORMAL) 07/24/23 05:40 D-Dimer 3.33 ug/ml (0.0-0.57) H 07/23/23 05:17 Sodium 138 mmol/L (136-145) 07/24/23 05:40 Corrected Sodium 139 mmol/L (136-145) 07/24/23 05:40 Potassium 3.8 mmol/L (3.5-5.1) 07/24/23 05:40 Chloride 107 mmol/L (98-107) 07/24/23 05:40 Carbon Dioxide 22.1 mmol/L (21-32) 07/24/23 05:40 BUN 13 mg/dL (7-18) 07/24/23 05:40 Creatinine 0.76 mg/dL (0.55-1.02) 07/24/23 05:40 Est GFR (MDRD) Af Amer > 60 (>60) 07/24/23 05:40 Est GFR (MDRD) Non-Af > 60 (>60) 07/24/23 05:40 Glucose 142 mg/dL (65-99) H 07/24/23 05:40 Lactic Acid 0.8 mmol/L (0.4-2.0) 07/23/23 05:25 Calcium 8.3 mg/dL (8.5-10.1) L 07/24/23 05:40 Corrected Calcium 9.2 mg/dL (8.5-10.1) 07/24/23 05:40 Magnesium 2.1 mg/dL (2.0-2.9) 07/24/23 05:40 Total Bilirubin 0.40 mg/dL (0.2-1.0) 07/24/23 05:40 AST 29 Units/L (15-37) 07/24/23 05:40 ALT 17 Units/L (12-78) 07/24/23 05:40 Alkaline Phosphatase 77 Units/L (46-116) 07/24/23 05:40 Troponin I High Sens 21.8 ng/L (4.0-60.0) 07/22/23 10:59 C-Reactive Protein 22.20 mg/L (0-3.0) H 07/24/23 05:40 B-Natriuretic Peptide 509 pg/mL (0-79) H 07/24/23 05:40 Total Protein 6.9 g/dL (6.4-8.2) 07/24/23 05:40 Albumin 2.9 g/dL (3.4-5.0) L 07/24/23 05:40 Globulin 4.0 g/dL (2.5-4.5) 07/24/23 05:40 Albumin/Globulin Ratio 0.7 Ratio (1.1-2.1) L 07/24/23 05:40 Lipase 34 Units/L (16-77) 07/22/23 09:15 Specimen Type Clean catch urine 07/22/23 16:20 Urine Color Yellow (YELLOW) 07/22/23 16:20 Urine Appearance Clear (CLEAR) 07/22/23 16:20 Urine pH 5.0 (5.0 - 8.0) 07/22/23 16:20 Ur Specific [place] 1.020 (1.000-1.030) 07/22/23 16:20 Urine Protein 1+ (NEGATIVE) 07/22/23 16:20 Urine Glucose (UA) Negative (NEGATIVE) 07/22/23 16:20 Urine Ketones 1+ (NEGATIVE) 07/22/23 16:20 Urine Blood Negative (NEGATIVE) 07/22/23 16:20 Urine Nitrite Negative (NEGATIVE) 07/22/23 16:20 Urine Bilirubin Negative (NEGATIVE) 07/22/23 16:20 Urine Urobilinogen Normal (NORMAL) 07/22/23 16:20 Ur Leukocyte Esterase Negative (NEGATIVE) 07/22/23 16:20 Urine RBC None seen /HPF (0-3) 07/22/23 16:20 Urine WBC 3-5 /HPF (0-5) 07/22/23 16:20 Ur Squamous Epith Cells Rare /HPF (NEGATIVE) 07/22/23 16:20 Amorphous Sediment Trace /HPF (NEGATIVE) 07/22/23 16:20 Urine Bacteria Trace /HPF (NEGATIVE) 07/22/23 16:20 Hyaline Casts Rare /LPF (NEGATIVE) 07/22/23 16:20 Urine Mucus Rare /HPF (NEGATIVE) 07/22/23 16:20 Ur Culture Indicated? No/not indicated 07/22/23 16:20 SARS-CoV-2 (PCR) Positive (NEGATIVE) A 07/22/23 09:28 Influenza Type A (PCR) Negative (NEGATIVE) 07/22/23 09:28 Influenza Type B (PCR) Negative (NEGATIVE) 07/22/23 09:28 RSV (PCR) Negative (NEGATIVE) 01/24/24 09:28 - Plan (1) COVID-19 virus infection Status: Acute Plan: SUPPLEMENTAL OXYGEN, NORMAL SALINE WITH 20MEQ POTASSIUM AT 75 ML/HR, LEVAQUIN 500MG IV DAILY, PAXLOVID, SOLU-MEDROL 40MG IV Q8H, DUONEBS TID PRN, LOVENOX 75MG DAILY. WE WILL RESUME HER HOME MEDICATIONS OF LIPITOR, PLAVIX, AND ZYPREXA. (2) Acute bronchitis Status: Acute Qualifiers: Bronchitis organism: unspecified organism Qualified Code(s): J20.9 - Acute bronchitis, unspecified (3) History of recent fall Status: Acute (4) Near syncope Status: Acute (5) Generalized weakness Status: Acute (6) Dementia Status: Chronic Qualifiers: Dementia type: unspecified type Dementia severity: unspecified severity Dementia behavioral or psychological symptom: without behavioral, psychotic, or mood disturbance or anxiety Qualified Code(s): F03.90 - Unspecified dementia, unspecified severity, without behavioral disturbance, psychotic disturbance, mood disturbance, and anxiety (7) Dyslipidemia Status: Chronic (8) CAD (coronary artery disease) Status: Chronic Qualifiers: Coronary Disease-Associated Artery/Lesion type: [place] artery [place] vs. transplanted heart: [place] heart Associated angina: unspecified whether angina present Qualified Code(s): I25.10 - Atherosclerotic heart disease of [place] coronary artery without angina pectoris
--- NOTE | 2023-07-24 11:30 | VAS ---
EXAM: [facility] Bilateral lower extremity DVT ultrasound examination with Doppler imaging. HISTORY: leg pain, elevated d-dimer, rule out dvt; . Evaluate for evidence for DVT. Bilateral lower extremity pain and swelling. COMPARISON: : None TECHNIQUE: Ultrasound of the deep venous vasculature of the bilateral lower extremities was performed. Color and spectral doppler imaging was utilized for the purposes of this examination as well. FINDINGS: The deep veins of both lower extremities are normal in size and configuration. No intraluminal filli ng defects are seen on grayscale or color flow imaging. The veins compress normally. Doppler waveforms are normal at rest and with augmentation. IMPRESSION: Negative bilateral lower extremity DVT ultrasound exam(s). THIS IS AN ELECTRONICALLY VERIFIED FINAL REPORT 07/24/2023 11:27 AM - Electronically signed by Kailash Horowitz
[2023-07-24] MEDS ORDERED: OMNIPAQUE 350 mg/mL 100 mL BTL 100 ML ONE (17:07)
[2023-07-24] MEDS ORDERED: NS 100 ML IV 100 ML ONE (17:07)
--- NOTE | 2023-07-24 18:47 | CT ---
EXAM: CT PULMONARY ANGIOGRAM CHEST WITH CONTRAST (PE PROTOCOL) HISTORY: sob, covid, elevated d-dimer, r/o pe; COMPARISON: None. TECHNIQUE: Axial CT images were obtained through the chest after the intravenous administration of contrast for the purposes of the CT pulmonary embolism examination. Coronal reformatted images were included. Max imum intensity projection (MIP) images were performed per pulmonary angiogram protocol. Informed written consent was obtained prior to contrast administration. All CT scans at this facility use dose modulation, iterative reconstruction, and/or weight based dosi ng when appropriate to reduce radiation dose to as low as reasonably achievable. FINDINGS: Satisfactory opacification of the pulmonary arteries without visible pulmonary artery filling defect. Lungs show scattered atelectasis/scarring and nonspecific interstitial thickening. Central airways appear patent. No visible lymphadenopathy. Severe atherosclerosis. 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 Coronary artery calcifications. Trace left pleural effusion. No miguelina cardial effusion or pneumothorax. No acute osseous finding. IMPRESSION: 1. No convincing CTA evidence of pulmonary embolism. 2. Trace left pleural effusion. Nonspecific interstitial thickening. CHF possible. Infrarenal abd ominal aortic aneurysm partially seen. THIS IS AN ELECTRONICALLY VERIFIED FINAL REPORT 07/24/2023 6:43 PM - Electronically signed by Pk Moe MD
[2023-07-24] MEDS: LIPITOR TAB 10 MG PO SCH (21:53)
[2023-07-25] MEDS: NS + KCL 20 MEQ/L 1,000 ML IV SCH ×4 (04:06→18:33)
[2023-07-25] MEDS: SOLU-Medrol 40 MG VIAL IVP SCH ×3 (05:11→21:31)
[2023-07-25 06:38] LABS: BASOPHILS % (AUTO) 0.1 % (0.2-1.0); HEMATOCRIT 34.2 % (36.0-47.0); HEMOGLOBIN 11.3 g/dL (12.0-16.0); LYMPHOCYTES # (AUTO) 0.5 X10^3/uL (1.3-2.9); LYMPHOCYTES % (AUTO) 3.8 % (21.0-51.0); MEAN CORPUSCULAR HEMOGLOBIN 29.5 pg (27.0-34.0); MEAN CORPUSCULAR VOLUME 89.4 fL (80.0-100.0); MEAN PLATELET VOLUME 10.1 fL (7.4-11.0); MONOCYTES # (AUTO) 0.3 x10^3/uL (0.3-0.8); MONOCYTES % (AUTO) 2.6 % (0.0-13.0); NEUTROPHILS # (AUTO) 12.1 x10^3/uL (2.2-4.8); NEUTROPHILS % (AUTO) 93.5 % (42.0-75.0); PLATELET COUNT 156 X10^3/uL (150.0-450.0); RED BLOOD COUNT 3.83 X10^6/uL (3.5-5.4); RED CELL DISTRIBUTION WIDTH 14.2 % (11.6-16.5); WHITE BLOOD COUNT 12.9 X10^3/uL (3.6-10.0)
[2023-07-25 06:54] LABS: ALANINE AMINOTRANSFERASE 19 Units/L (12-78); ALBUMIN 3.1 g/dL (3.4-5.0); ALKALINE PHOSPHATASE 78 Units/L (46-116); ASPARTATE AMINO TRANSFERASE 30 Units/L (15-37); BLOOD UREA NITROGEN 12 mg/dL (7-18); CALCIUM 8.4 mg/dL (8.5-10.1); CARBON DIOXIDE 27.6 mmol/L (21-32); CHLORIDE 104 mmol/L (98-107); COR CA(FOR HYPOALB) 9.1 mg/dL (8.5-10.1); COR NA(FOR HYPERGLY) 139 mmol/L (136-145); CREATININE 0.67 mg/dL (0.55-1.02); GLUCOSE 119 mg/dL (65-99); POTASSIUM 3.3 mmol/L (3.5-5.1); SODIUM 139 mmol/L (136-145); eGFR NON BLACK RACES > 60 (>60)
--- NOTE | 2023-07-25 06:56 | RAD ---
EXAM: CHEST, 1 VIEW HISTORY: SOB; HX: CAD, MD, HTN COMPARISON: 07/24/2023. TECHNIQUE: AP view of the chest FINDINGS: The cardiac and mediastinal contours are normal in size. Lungs are hyperexpanded. No consolidation or segmental lung collapse. No definite pleural effusion or pneumothorax. IMPRESSION: Hyperexpanded lungs can be seen with COPD or a good inspiratory effort. CTA chest was performed 1 da y prior. Please see CT for any pulmonary nodules. THIS IS AN ELECTRONICALLY VERIFIED FINAL REPORT 07/25/2023 6:54 AM - Electronically signed by Candido Han MD
[2023-07-25 08:00] LABS: PLATELET MORPHOLOGY COMMENT NORMAL (NORMAL)
[2023-07-25] MEDS ORDERED: CONSULT PHARMACY - POTASSIUM & MAGNESIUM XX SCH ×2 (08:00)
[2023-07-25 08:05] LABS: BAND NEUTROPHILS % 6 % (0-10)
[2023-07-25] MEDS ORDERED: K-DUR TAB 20 MEQ PO SCH ×2 (09:00)
[2023-07-25] MEDS ORDERED: MILK OF MAGNESIA PO PRN (09:08)
[2023-07-25] MEDS: LEVAQUIN PREMIX IV 500 MG 500 MG/100 ML BAG IV SCH (09:13)
[2023-07-25] MEDS: PATIENT'S HOME MEDICATION PO SCH ×2 (09:13→21:00)
[2023-07-25] MEDS: LOVENOX INJ 40 MG SYR SC SCH (09:13)
[2023-07-25] MEDS: MAG-OX TAB PO SCH ×2 (09:14→10:45)
[2023-07-25] MEDS: PLAVIX PO SCH (09:14)
[2023-07-25] MEDS ORDERED: COLACE CAP 100 MG PO PRN (09:32)
--- NOTE | 2023-07-25 18:33 | PCM.PROG ---
Progress Note Progress Note for Day of Date of Exam: 07/25/23 Subjective Subjective: IS CURRENTLY OBSERVATION STATUS FOR TREATMENT OF COVID- 19, ACUTE BRONCHITIS, RECENT FALL, NEAR SYNCOPE, AND GENERALIZED WEAKNESS. MEDICAL HX INCLUDES: DEMENTIA, DYSLIPIDEMIA, HX OF ID. This morning the patient is alert and awake. She is standing up in her room conversing with everybody in there. She does not appear very ill at this time but is still having some shortness of breath at times. She is also having intermittent visual hallucinations. She received Zyprexa last night and did not tolerate that it also be discontinued at this morning. I am going to try her on Seroquel 25 mg at night see if that does better. Past Medical Family Social History Past Med/Fam/Surg Hx: No changes since H&P Allergies: Allergies No Known Allergies Allergy (Verified 07/21/23 15:03) Review of Systems ROS: No change since H&P Vital Signs and I&O's Vital Signs: Vital Signs Temperature 98.6 F Temperature 97.9 F Pulse Rate [Left Brachial] 60 Pulse Rate [Left Brachial] 58 Respiratory Rate 15 Respiratory Rate 20 Blood Pressure [Right Arm] 162/89 Blood Pressure [Right Arm] 157/75 O2 Sat by Pulse Oximetry 97 O2 Sat by Pulse Oximetry 94 Intake and Output: Intake & Output 07/23/23 07/24/23 07/25/23 07/26/23 11:59 11:59 11:59 11:59 Intake Total 2455 / 2455 4339 / 4339 2613 / 2613 1020 / 1020 Output Total 500 / 500 Balance 2455 / 2455 3839 / 3839 2613 / 2613 1020 / 1020 Physical Exam Oriented: Normal Eyes: Normal Ear: Normal Nose: Normal Throat: Normal Cardiovascular: Normal : Normal Auscultation: Bowel Sounds: Normal Tenderness: Normal Skin: Normal Musculoskeletal: Normal Psychiatric: Normal Mood Description: Calm Affect: Normal Speech Pattern: Clear and Appropriate Laboratory and Diagnostics 07/25/23 05:17 07/25/23 05:17 Labs: Laboratory WBC 12.9 X10^3/uL (3.6-10.0) H 07/25/23 05:17 RBC 3.83 X10^6/uL (3.5-5.4) 07/25/23 05:17 Hgb 11.3 g/dL (12.0-16.0) L 07/25/23 05:17 Hct 34.2 % (36.0-47.0) L 07/25/23 05:17 MCV 89.4 fL (80.0-100.0) 07/25/23 05:17 MCH 29.5 pg (27.0-34.0) 07/25/23 05:17 MCHC 33.0 g/dL (33.0-35.0) 07/25/23 05:17 RDW 14.2 % (11.6-16.5) 07/25/23 05:17 Plt Count 156 X10^3/uL (150.0-450.0) 07/25/23 05:17 Plt Count Comment Adequate (ADEQUATE) 07/25/23 05:17 MPV 10.1 fL (7.4-11.0) 07/25/23 05:17 Neut % (Auto) 93.5 % (42.0-75.0) H 07/25/23 05:17 Lymph % (Auto) 3.8 % (21.0-51.0) L 07/25/23 05:17 [place] % (Auto) 2.6 % (0.0-13.0) 07/25/23 05:17 Eos % (Auto) 0.0 % (0.9-2.9) L 07/25/23 05:17 Baso % (Auto) 0.1 % (0.2-1.0) L 07/25/23 05:17 Neut # (Auto) 12.1 x10^3/uL (2.2-4.8) H 07/25/23 05:17 Lymph # (Auto) 0.5 X10^3/uL (1.3-2.9) L 07/25/23 05:17 [place] # (Auto) 0.3 x10^3/uL (0.3-0.8) 07/25/23 05:17 Eos # (Auto) 0.0 x10^3/uL (0.0-0.2) 07/25/23 05:17 Baso # (Auto) 0.0 X10^3/uL (0.0-0.1) 07/25/23 05:17 Absolute Nucleated RBC 0.0 /100WBC 07/25/23 05:17 Total Counted 100 07/25/23 05:17 Neutrophils % (Manual) 87 % (39-76) H 07/25/23 05:17 Band Neutrophils % 6 % (0-10) 07/25/23 05:17 Lymphocytes % (Manual) 4 % (13-43) L 07/25/23 05:17 Monocytes % (Manual) 2 % (4-9) L 07/25/23 05:17 Plt Morphology Comment Normal (NORMAL) 07/25/23 05:17 RBC Morphology Normal (NORMAL) 07/25/23 05:17 D-Dimer 3.33 ug/ml (0.0-0.57) H 07/23/23 05:17 Sodium 139 mmol/L (136-145) 07/25/23 05:17 Corrected Sodium 139 mmol/L (136-145) 07/25/23 05:17 Potassium 3.3 mmol/L (3.5-5.1) L 07/25/23 05:17 Chloride 104 mmol/L (98-107) 07/25/23 05:17 Carbon Dioxide 27.6 mmol/L (21-32) 07/25/23 05:17 BUN 12 mg/dL (7-18) 07/25/23 05:17 Creatinine 0.67 mg/dL (0.55-1.02) 07/25/23 05:17 Est GFR (MDRD) Af Amer > 60 (>60) 07/25/23 05:17 Est GFR (MDRD) Non-Af > 60 (>60) 07/25/23 05:17 Glucose 119 mg/dL (65-99) H 07/25/23 05:17 Lactic Acid 0.8 mmol/L (0.4-2.0) 07/23/23 05:25 Calcium 8.4 mg/dL (8.5-10.1) L 07/25/23 05:17 Corrected Calcium 9.1 mg/dL (8.5-10.1) 07/25/23 05:17 Magnesium 1.9 mg/dL (2.0-2.9) L 07/25/23 06:55 Total Bilirubin 0.70 mg/dL (0.2-1.0) 07/25/23 05:17 AST 30 Units/L (15-37) 07/25/23 05:17 ALT 19 Units/L (12-78) 07/25/23 05:17 Alkaline Phosphatase 78 Units/L (46-116) 07/25/23 05:17 Troponin I High Sens 21.8 ng/L (4.0-60.0) 07/22/23 10:59 C-Reactive Protein 12.20 mg/L (0-3.0) H 07/25/23 05:17 B-Natriuretic Peptide 515 pg/mL (0-79) H 07/25/23 05:17 Total Protein 7.0 g/dL (6.4-8.2) 07/25/23 05:17 Albumin 3.1 g/dL (3.4-5.0) L 07/25/23 05:17 Globulin 3.9 g/dL (2.5-4.5) 07/25/23 05:17 Albumin/Globulin Ratio 0.8 Ratio (1.1-2.1) L 07/25/23 05:17 Lipase 34 Units/L (16-77) 07/22/23 09:15 Specimen Type Clean catch urine 07/22/23 16:20 Urine Color Yellow (YELLOW) 07/22/23 16:20 Urine Appearance Clear (CLEAR) 07/22/23 16:20 Urine pH 5.0 (5.0 - 8.0) 07/22/23 16:20 Ur Specific [place] 1.020 (1.000-1.030) 07/22/23 16:20 Urine Protein 1+ (NEGATIVE) 07/22/23 16:20 Urine Glucose (UA) Negative (NEGATIVE) 07/22/23 16:20 Urine Ketones 1+ (NEGATIVE) 07/22/23 16:20 Urine Blood Negative (NEGATIVE) 07/22/23 16:20 Urine Nitrite Negative (NEGATIVE) 07/22/23 16:20 Urine Bilirubin Negative (NEGATIVE) 07/22/23 16:20 Urine Urobilinogen Normal (NORMAL) 07/22/23 16:20 Ur Leukocyte Esterase Negative (NEGATIVE) 07/22/23 16:20 Urine RBC None seen /HPF (0-3) 07/22/23 16:20 Urine WBC 3-5 /HPF (0-5) 07/22/23 16:20 Ur Squamous Epith Cells Rare /HPF (NEGATIVE) 07/22/23 16:20 Amorphous Sediment Trace /HPF (NEGATIVE) 07/22/23 16:20 Urine Bacteria Trace /HPF (NEGATIVE) 07/22/23 16:20 Hyaline Casts Rare /LPF (NEGATIVE) 07/22/23 16:20 Urine Mucus Rare /HPF (NEGATIVE) 07/22/23 16:20 Ur Culture Indicated? No/not indicated 07/22/23 16:20 SARS-CoV-2 (PCR) Positive (NEGATIVE) A 07/22/23 09:28 Influenza Type A (PCR) Negative (NEGATIVE) 07/22/23 09:28 Influenza Type B (PCR) Negative (NEGATIVE) 07/22/23 09:28 RSV (PCR) Negative (NEGATIVE) 07/22/23 09:28 Plan (1) COVID-19 virus infection: Status: Acute Plan: SUPPLEMENTAL OXYGEN, NORMAL SALINE WITH 20MEQ POTASSIUM AT 75 ML/HR, LEVAQUIN 500MG IV DAILY, PAXLOVID, SOLU-MEDROL 40MG IV Q8H, DUONEBS TID PRN, LO VENOX 75MG DAILY. WE WILL RESUME HER HOME MEDICATIONS OF LIPITOR, PLAVIX, AND ZYPREXA. (2) Acute bronchitis: Status: Acute Qualifiers: Bronchitis organism: unspecified organism Qualified Code(s): J20.9 - Acute bronchitis, unspecified (3) History of recent fall: Status: Acute (4) Near syncope: Status: Acute (5) Generalized weakness: Status: Acute (6) Dementia: Status: Chronic Qualifiers: Dementia type: unspecified type Dementia severity: unspecified severity Dementia behavioral or psychological symptom: without behavioral, psychotic, or mood disturbance or anxiety Qualified Code(s): F03.90 - Unspecified dementia, unspecified severity, without behavioral disturbance, psychotic disturbance, mood disturbance, and anxiety (7) Dyslipidemia: Status: Chronic (8) CAD (coronary artery disease): Status: Chronic Qualifiers: Coronary Disease-Associated Artery/Lesion type: [place] artery [place] vs. transplanted heart: [place] heart Associated angina: unspecified whether angina present Qualified Code(s): I25.10 - Atherosclerotic heart disease of [place] coronary artery without angina pectoris
[2023-07-25] MEDS: LIPITOR TAB 10 MG PO SCH (21:31)
[2023-07-25] MEDS: SEROquel TAB 25 mg PO SCH (21:31)
[2023-07-26] MEDS: SOLU-Medrol 40 MG VIAL IVP SCH ×3 (05:19→21:39)
[2023-07-26] MEDS: NS + KCL 20 MEQ/L 1,000 ML IV SCH ×3 (05:19→21:00)
[2023-07-26 06:52] LABS: BASOPHILS % (AUTO) 0 % (0.2-1.0); HEMATOCRIT 32.9 % (36.0-47.0); HEMOGLOBIN 11.1 g/dL (12.0-16.0); LYMPHOCYTES # (AUTO) 0.3 X10^3/uL (1.3-2.9); LYMPHOCYTES % (AUTO) 3.3 % (21.0-51.0); MEAN CORPUSCULAR HEMOGLOBIN 30.1 pg (27.0-34.0); MEAN CORPUSCULAR HGB CONC 33.8 g/dL (33.0-35.0); MEAN PLATELET VOLUME 10.3 fL (7.4-11.0); MONOCYTES # (AUTO) 0.3 x10^3/uL (0.3-0.8); NEUTROPHILS # (AUTO) 9.2 x10^3/uL (2.2-4.8); NEUTROPHILS % (AUTO) 93.7 % (42.0-75.0); PLATELET COUNT 158 X10^3/uL (150.0-450.0); RED CELL DISTRIBUTION WIDTH 14.2 % (11.6-16.5); WHITE BLOOD COUNT 9.9 X10^3/uL (3.6-10.0)
[2023-07-26] MEDS ORDERED: CONSULT PHARMACY - POTASSIUM & MAGNESIUM XX SCH (07:00)
[2023-07-26 07:03] LABS: ALANINE AMINOTRANSFERASE 19 Units/L (12-78); ALKALINE PHOSPHATASE 71 Units/L (46-116); ASPARTATE AMINO TRANSFERASE 25 Units/L (15-37); BLOOD UREA NITROGEN 17 mg/dL (7-18); CALCIUM 8.3 mg/dL (8.5-10.1); CARBON DIOXIDE 27.6 mmol/L (21-32); CHLORIDE 105 mmol/L (98-107); COR CA(FOR HYPOALB) 9.1 mg/dL (8.5-10.1); COR NA(FOR HYPERGLY) 140 mmol/L (136-145); CREATININE 0.78 mg/dL (0.55-1.02); GLUCOSE 127 mg/dL (65-99); POTASSIUM 3.3 mmol/L (3.5-5.1); SODIUM 139 mmol/L (136-145); TOTAL PROTEIN 6.6 g/dL (6.4-8.2); eGFR NON BLACK RACES > 60 (>60)
--- NOTE | 2023-07-26 08:04 | RAD ---
EXAM: CHEST, 1 VIEW HISTORY: SOB, CHEST PAIN; SX-ANGIOPLASTY/STENTS, APPENDECTOMY, CHOLECYSECTOMY, ORTHO, SPLEENECTOMY COMPARISON: 07/25/2023. TECHNIQUE: AP view of the chest FINDINGS: The cardiac and mediastinal contours are normal in size. Moderate athero sclerotic plaque of the aor tic knob. Lungs mildly hyperexpanded. Mild scattered interstitial opacities. No definite pleural e ffusion or pneumothorax. IMPRESSION: No significant change compared to prior radiograph. THIS IS AN ELECTRONICALLY VERIFIED FINAL REPORT 07/26/2023 8:00 AM - Electronically signed by Candido Han MD
[2023-07-26 08:09] LABS: BAND NEUTROPHILS % 5 % (0-10)
[2023-07-26 08:10] LABS: PLATELET MORPHOLOGY COMMENT NORMAL (NORMAL)
[2023-07-26] MEDS ORDERED: K-DUR TAB 20 MEQ PO SCH (09:00)
[2023-07-26] MEDS: PATIENT'S HOME MEDICATION PO SCH ×2 (09:13→21:49)
[2023-07-26] MEDS: LOVENOX INJ 40 MG SYR SC SCH (09:13)
[2023-07-26] MEDS: LEVAQUIN PREMIX IV 500 MG 500 MG/100 ML BAG IV SCH (09:13)
--- NOTE | 2023-07-26 17:26 | PCM.PROG ---
Progress Note Progress Note for Day of Date of Exam: 07/26/23 Subjective Subjective: IS CURRENTLY OBSERVATION STATUS FOR TREATMENT OF COVID- 19, ACUTE BRONCHITIS, RECENT FALL, NEAR SYNCOPE, AND GENERALIZED WEAKNESS. MEDICAL HX INCLUDES: DEMENTIA, DYSLIPIDEMIA, HX OF [place]. This morning the patient is resting. She is still in bed sleeping this morning late in the morning. Her daughter is with her and states that the Seroquel worked very well. Her breathing is doing much better. Her O2 sat is still on the low 90s but I see her blood pressure is creeping up. I will go ahead and start her on valsartan 80 mg 1 p.o. daily. Past Medical Family Social History Past Med/Fam/Surg Hx: No changes since H&P Allergies: Allergies No Known Allergies Allergy (Verified 07/21/23 15:03) Review of Systems ROS: No change since H&P Vital Signs and I&O's Vital Signs: Vital Signs Temperature 97.4 F Temperature 97.6 F Pulse Rate [Left Brachial] 70 Pulse Rate [Left Brachial] 60 Respiratory Rate 20 Respiratory Rate 20 Blood Pressure [Right Arm] 142/64 Blood Pressure [Right Arm] 127/58 O2 Sat by Pulse Oximetry 93 O2 Sat by Pulse Oximetry 98 Intake and Output: Intake & Output 07/23/23 07/24/23 07/25/23 07/26/23 11:59 11:59 11:59 11:59 Intake Total 2455 / 2455 4339 / 4339 2613 / 2613 2208 / 2208 Output Total 500 / 500 Balance 2455 / 2455 3839 / 3839 2613 / 2613 2208 / 2208 Physical Exam Oriented: Normal Eyes: Normal Ear: Normal Nose: Normal Throat: Normal Respiratory: Normal Cardiovascular: Normal : Normal Auscultation: Bowel Sounds: Normal Tenderness: Normal Skin: Normal Musculoskeletal: Normal Psychiatric: Normal Mood Description: Calm Affect: Normal Speech Pattern: Clear and Appropriate Laboratory and Diagnostics 07/26/23 05:26 07/26/23 05:26 Labs: Laboratory WBC 9.9 X10^3/uL (3.6-10.0) 07/26/23 05:26 RBC 3.70 X10^6/uL (3.5-5.4) 07/26/23 05:26 Hgb 11.1 g/dL (12.0-16.0) L 07/26/23 05:26 Hct 32.9 % (36.0-47.0) L 07/26/23 05:26 MCV 89.0 fL (80.0-100.0) 07/26/23 05:26 MCH 30.1 pg (27.0-34.0) 07/26/23 05:26 MCHC 33.8 g/dL (33.0-35.0) 07/26/23 05:26 RDW 14.2 % (11.6-16.5) 07/26/23 05:26 Plt Count 158 X10^3/uL (150.0-450.0) 07/26/23 05:26 Plt Count Comment Adequate (ADEQUATE) 07/26/23 05:26 MPV 10.3 fL (7.4-11.0) 07/26/23 05:26 Neut % (Auto) 93.7 % (42.0-75.0) H 07/26/23 05:26 Lymph % (Auto) 3.3 % (21.0-51.0) L 07/26/23 05:26 [place] % (Auto) 3.0 % (0.0-13.0) 07/26/23 05:26 Eos % (Auto) 0.0 % (0.9-2.9) L 07/26/23 05:26 Baso % (Auto) 0 % (0.2-1.0) L 07/26/23 05:26 Neut # (Auto) 9.2 x10^3/uL (2.2-4.8) H 07/26/23 05:26 Lymph # (Auto) 0.3 X10^3/uL (1.3-2.9) L 07/26/23 05:26 [place] # (Auto) 0.3 x10^3/uL (0.3-0.8) 07/26/23 05:26 Eos # (Auto) 0.0 x10^3/uL (0.0-0.2) 07/26/23 05:26 Baso # (Auto) 0.0 X10^3/uL (0.0-0.1) 07/26/23 05:26 Absolute Nucleated RBC 0.0 /100WBC 07/26/23 05:26 Total Counted 100 07/26/23 05:26 Neutrophils % (Manual) 90 % (39-76) H 07/26/23 05:26 Band Neutrophils % 5 % (0-10) 07/26/23 05:26 Lymphocytes % (Manual) 2 % (13-43) L 07/26/23 05:26 Monocytes % (Manual) 3 % (4-9) L 07/26/23 05:26 Plt Morphology Comment Normal (NORMAL) 07/26/23 05:26 RBC Morphology Normal (NORMAL) 07/26/23 05:26 D-Dimer 3.33 ug/ml (0.0-0.57) H 07/23/23 05:17 Sodium 139 mmol/L (136-145) 07/26/23 05:26 Corrected Sodium 140 mmol/L (136-145) 07/26/23 05:26 Potassium 3.3 mmol/L (3.5-5.1) L 07/26/23 05:26 Chloride 105 mmol/L (98-107) 07/26/23 05:26 Carbon Dioxide 27.6 mmol/L (21-32) 07/26/23 05:26 BUN 17 mg/dL (7-18) 07/26/23 05:26 Creatinine 0.78 mg/dL (0.55-1.02) 07/26/23 05:26 Est GFR (MDRD) Af Amer > 60 (>60) 07/26/23 05:26 Est GFR (MDRD) Non-Af > 60 (>60) 07/26/23 05:26 Glucose 127 mg/dL (65-99) H 07/26/23 05:26 Lactic Acid 0.8 mmol/L (0.4-2.0) 07/23/23 05:25 Calcium 8.3 mg/dL (8.5-10.1) L 07/26/23 05:26 Corrected Calcium 9.1 mg/dL (8.5-10.1) 07/26/23 05:26 Magnesium 2.1 mg/dL (2.0-2.9) 07/26/23 05:22 Total Bilirubin 0.60 mg/dL (0.2-1.0) 07/26/23 05:26 AST 25 Units/L (15-37) 07/26/23 05:26 ALT 19 Units/L (12-78) 07/26/23 05:26 Alkaline Phosphatase 71 Units/L (46-116) 07/26/23 05:26 Troponin I High Sens 21.8 ng/L (4.0-60.0) 07/22/23 10:59 C-Reactive Protein 6.50 mg/L (0-3.0) H 07/26/23 05:26 B-Natriuretic Peptide 392 pg/mL (0-79) H 07/26/23 05:26 Total Protein 6.6 g/dL (6.4-8.2) 07/26/23 05:26 Albumin 3.0 g/dL (3.4-5.0) L 07/26/23 05:26 Globulin 3.6 g/dL (2.5-4.5) 07/26/23 05:26 Albumin/Globulin Ratio 0.8 Ratio (1.1-2.1) L 07/26/23 05:26 Lipase 34 Units/L (16-77) 07/22/23 09:15 Specimen Type Clean catch urine 07/22/23 16:20 Urine Color Yellow (YELLOW) 07/22/23 16:20 Urine Appearance Clear (CLEAR) 07/22/23 16:20 Urine pH 5.0 (5.0 - 8.0) 07/22/23 16:20 Ur Specific [place] 1.020 (1.000-1.030) 07/22/23 16:20 Urine Protein 1+ (NEGATIVE) 07/22/23 16:20 Urine Glucose (UA) Negative (NEGATIVE) 07/22/23 16:20 Urine Ketones 1+ (NEGATIVE) 07/22/23 16:20 Urine Blood Negative (NEGATIVE) 07/22/23 16:20 Urine Nitrite Negative (NEGATIVE) 07/22/23 16:20 Urine Bilirubin Negative (NEGATIVE) 07/22/23 16:20 Urine Urobilinogen Normal (NORMAL) 07/22/23 16:20 Ur Leukocyte Esterase Negative (NEGATIVE) 07/22/23 16:20 Urine RBC None seen /HPF (0-3) 07/22/23 16:20 Urine WBC 3-5 /HPF (0-5) 07/22/23 16:20 Ur Squamous Epith Cells Rare /HPF (NEGATIVE) 07/22/23 16:20 Amorphous Sediment Trace /HPF (NEGATIVE) 07/22/23 16:20 Urine Bacteria Trace /HPF (NEGATIVE) 07/22/23 16:20 Hyaline Casts Rare /LPF (NEGATIVE) 07/22/23 16:20 Urine Mucus Rare /HPF (NEGATIVE) 07/22/23 16:20 Ur Culture Indicated? No/not indicated 07/22/23 16:20 SARS-CoV-2 (PCR) Positive (NEGATIVE) A 07/22/23 09:28 Influenza Type A (PCR) Negative (NEGATIVE) 07/22/23 09:28 Influenza Type B (PCR) Negative (NEGATIVE) 07/22/23 09:28 RSV (PCR) Negative (NEGATIVE) 07/22/23 09:28 Plan (1) COVID-19 virus infection: Status: Acute Plan: SUPPLEMENTAL OXYGEN, NORMAL SALINE WITH 20MEQ POTASSIUM AT 75 ML/HR, LEVAQUIN 500MG IV DAILY, PAXLOVID, SOLU-MEDROL 40MG IV Q8H, DUONEBS TID PRN, LOVENOX 75MG DAILY. WE WILL RESUME HER HOME MEDICATIONS OF LIPITOR, PLAVIX, AND ZYPREXA. (2) Acute bronchitis: Status: Acute Qualifiers: Bronchitis organism: unspecified organism Qualified Code(s): J20.9 - Acute bronchitis, unspecified (3) History of recent fall: Status: Acute (4) Near syncope: Status: Acute (5) Generalized weakness: Status: Acute (6) Dementia: Status: Chronic Qualifiers: Dementia behavioral or psychological symptom: without behavioral, psychotic, or mood disturbance or anxiety Dementia severity: unspecified severity Dementia type: unspecified type Qualified Code(s): F03.90 - Unspecified dementia, unspecified severity, without behavioral disturbance, psychotic disturbance, mood disturbance, and anxiety (7) Dyslipidemia: Status: Chronic (8) CAD (coronary artery disease): Status: Chronic Qualifiers: Associated angina: unspecified whether angina present Coronary Disease- Associated Artery/Lesion type: [place] artery [place] vs. transplanted heart: [place] heart Qualified Code(s): I25.10 - Atherosclerotic heart disease of [place] coronary artery without angina pectoris (9) Essential hypertension: Status: Acute Plan: Start valsartan 80 mg 1 p.o. daily.
[2023-07-26] MEDS: DIOVAN TAB 80 MG PO SCH (18:54)
[2023-07-26] MEDS: PLAVIX PO SCH (21:30)
[2023-07-26] MEDS: SEROquel TAB 25 mg PO SCH (21:36)
[2023-07-26] MEDS: LIPITOR TAB 10 MG PO SCH (21:36)
[2023-07-27] MEDS: SOLU-Medrol 40 MG VIAL IVP SCH ×3 (05:47→22:00)
[2023-07-27 06:21] LABS: BASOPHILS % (AUTO) 0.1 % (0.2-1.0); HEMATOCRIT 31.7 % (36.0-47.0); HEMOGLOBIN 10.6 g/dL (12.0-16.0); LYMPHOCYTES # (AUTO) 0.4 X10^3/uL (1.3-2.9); LYMPHOCYTES % (AUTO) 3.3 % (21.0-51.0); MEAN CORPUSCULAR HEMOGLOBIN 29.8 pg (27.0-34.0); MEAN CORPUSCULAR HGB CONC 33.4 g/dL (33.0-35.0); MEAN CORPUSCULAR VOLUME 89.2 fL (80.0-100.0); MEAN PLATELET VOLUME 9.9 fL (7.4-11.0); MONOCYTES # (AUTO) 0.3 x10^3/uL (0.3-0.8); MONOCYTES % (AUTO) 2.6 % (0.0-13.0); NEUTROPHILS # (AUTO) 10.7 x10^3/uL (2.2-4.8); PLATELET COUNT 152 X10^3/uL (150.0-450.0); RED BLOOD COUNT 3.55 X10^6/uL (3.5-5.4); WHITE BLOOD COUNT 11.4 X10^3/uL (3.6-10.0)
[2023-07-27 06:44] LABS: ALANINE AMINOTRANSFERASE 17 Units/L (12-78); ALBUMIN 2.8 g/dL (3.4-5.0); ALKALINE PHOSPHATASE 70 Units/L (46-116); ASPARTATE AMINO TRANSFERASE 21 Units/L (15-37); BLOOD UREA NITROGEN 18 mg/dL (7-18); CALCIUM 8.2 mg/dL (8.5-10.1); CARBON DIOXIDE 27.7 mmol/L (21-32); CHLORIDE 106 mmol/L (98-107); COR CA(FOR HYPOALB) 9.2 mg/dL (8.5-10.1); COR NA(FOR HYPERGLY) 143 mmol/L (136-145); CREATININE 0.75 mg/dL (0.55-1.02); GLUCOSE 143 mg/dL (65-99); POTASSIUM 3.5 mmol/L (3.5-5.1); SODIUM 142 mmol/L (136-145); TOTAL PROTEIN 6.2 g/dL (6.4-8.2); eGFR NON BLACK RACES > 60 (>60)
--- NOTE | 2023-07-27 07:26 | RAD ---
EXAM:CHEST, 1 VIEWHISTORY:SOB;COMPARISON:Prior study or studies were utilized for comparison during interpretation with the most relevant dated 07/26/2023TECHNIQUE:CHEST, 1 VIEWFINDINGS:Chest:Lines and tubes: NoneMediastinum: Cardiac and mediastinal shadow is within normal limits for size and contour.Pulmonary vessels: No pulmonary vascular congestion.Lung benavidez: Interstitial markings and hyperinflation of the lungs with diaphragmatic flattening.Pleura: No effusion. No pneumothorax.Bones and soft tissues: No acute osseous or soft tissue abnormality.IMPRESSION:1. No acute cardiopulmonary abnormalityTHIS IS AN ELECTRONICALLY VERIFIED FINAL REPORT07/27/2023 7:23 AM - Electronically signed by Pako Watson MD
[2023-07-27 07:49] LABS: BAND NEUTROPHILS % 5 % (0-10); GIANT PLATELET RARE; PLATELET MORPHOLOGY COMMENT ABNORMAL (NORMAL)
[2023-07-27] MEDS ORDERED: CONSULT PHARMACY - POTASSIUM & MAGNESIUM XX SCH (08:00)
[2023-07-27] MEDS: DIOVAN TAB 80 MG PO SCH (09:17)
[2023-07-27] MEDS: LEVAQUIN PREMIX IV 500 MG 500 MG/100 ML BAG IV SCH (09:17)
[2023-07-27] MEDS: LOVENOX INJ 40 MG SYR SC SCH (09:17)
[2023-07-27] MEDS: PATIENT'S HOME MEDICATION PO SCH ×2 (09:17→20:46)
[2023-07-27] MEDS: NS + KCL 20 MEQ/L 1,000 ML IV SCH ×2 (11:57→16:27)
--- NOTE | 2023-07-27 12:27 | PCM.PROG ---
Progress Note - Progress Note for Day of Date of Exam: 07/27/23 - Subjective Subjective: IS CURRENTLY OBSERVATION STATUS FOR TREATMENT OF COVID- 19, ACUTE BRONCHITIS, PHYSICAL DECONDITIONING, RECENT FALL, NEAR SYNCOPE, GENERALIZED WEAKNESS, HTN. MEDICAL HX INCLUDES: DEMENTIA, DYSLIPIDEMIA, HX OF [place]. TODAY, PATIENT IS LYING IN BED WITH EYES CLOSED ON MORNING ROUNDS. SHE AWAKENS TO VERBAL STIMULI, BUT IS DROWSY. DAUGHTER IS AT BEDSIDE AND REPORTS THAT SHE WAS STARTED ON SEROQUEL OVER THE WEEKEND DUE TO NOT SLEEPING WELL AND HAS BEEN DROWSY SINCE STARTING IT. PATIENT CONTINUES TO COMPLAIN OF WEAKNESS, AND SHORTNESS OF BREATH AT TIMES. SHE HAS HAD AN OCCASIONAL COUGH. NURSING STAFF REPORTS THAT PATIENT REQUIRES ASSISTANCE WITH AMBULATION. ON EXAMINATION, SCATTERED BRUISING NOTED. HEART IS REGULAR IN RATE AND RHYTHM. BILATERAL LUNGS ARE NOTED WITH DIMINISHED LUNG SOUNDS THROUGHOUT. ABDOMEN IS ROUND, SOFT, AND NON-TENDER WITH NORMAL BOWEL SOUNDS NOTED IN ALL QUADRANTS. GOOD RANGE OF MOTION NOTED TO UPPER AND LOWER EXTREMITIES WITH NO EDEMA NOTED. THERE IS BRUISING AND TENDERNESS OF LOWER EXTREMITIES AND FEET NOTED. HER VITALS THIS MORNING ARE: 97.5-70-20-95%-146/76. LABS WERE OBTAINED. WBC 11.4, RBC 3.55, HGB 10.6, HCT 31.7, PLT COUNT 152, SODIUM 142, POTASSIUM 3.5, CHLORIDE 106, BUN 18, CREATININE 0.75, GLUCOSE 143, CALCIUM 8.2, TOTAL PROTEIN 0.50, AST 21, ALT 17, ALK PHOS 70, CRP 3.70, BNP 423, TOTAL PROTEIN 6.2, ALBUMIN 2.8. A CHEST XRAY WAS REPEATED AND REVEALED: NO ACUTE CARDIOPULMONARY DISEASE. CHEST CTA AND LOWER EXTREMITY VENOUS DOPPLER WAS OBTAINED LAST WEEK AND WAS NEGATIVE FOR PE OR DVT. SHE IS CURRENTLY RECEIVING NORMAL SALINE WITH 20MEQ POTASSIUM AT 75 ML/HR, LEVAQUIN 500MG IV DAILY, PAXLOVID, SOLU-MEDROL 40MG IV Q8H, DUONEBS TID PRN, LOVENOX 75MG DAILY, SEROQUEL 25MG PO HS, COLACE 200MG Q12H PRN, VALSARTAN 80MG DAILY. WE RESUMED HER HOME MEDICATIONS OF LIPITOR AND PLAVIX. PHYSICAL THERAPY HAS WORKED WITH HER AND RECOMMEND CONTINUED PT SERVICES A SWINGBED PRIOR TO RETURNING HOME DUE TO PHYSICAL DECONDITIONING FOLLOWING COVID-19 AND RECENT FALLS. WE ARE IN AGREEMENT. WE WILL CONTINUE WITH CURRENT PLAN OF CARE TODAY. OTHERWISE, WE PLAN TO FOLLOW UP WITH AM LABS AND CONTINUE TO MONITOR. TIME SPENT ON CLINICAL ASSESSMENT, REVIEWING LABS AND IMAGING, DECISION MAKING, AND DOCUMENTATION GREATER THAN 45 MINUTES. - Past Medical Family Social History Past Med/Fam/Surg Hx: No changes since H&P Allergies: Allergies No Known Allergies Allergy (Verified 07/21/23 15:03) - Review of Systems ROS: No change since H&P - Vital Signs and I&O's Vital Signs: Vital Signs Temperature 97.5 F Pulse Rate [Left Brachial] 70 Respiratory Rate 20 Blood Pressure [Right Arm] 146/76 O2 Sat by Pulse Oximetry 95 Intake and Output: Intake & Output 07/25/23 07/26/23 07/27/23 07/28/23 11:59 11:59 11:59 11:59 Intake Total 2613 / 2613 2208 / 2208 2811 / 2811 Balance 2613 / 2613 2208 / 2208 2811 / 2811 - Physical Exam Oriented: Normal Eyes: Normal Ear: Normal Nose: Normal Throat: Normal Respiratory: Normal Cardiovascular: Normal : Normal Auscultation: Bowel Sounds: Normal Tenderness: Normal Skin: Normal Musculoskeletal: Normal Psychiatric: Normal Mood Description: Calm Affect: Normal Speech Pattern: Clear, Appropriate - Laboratory and Diagnostics Result Diagrams: 07/27/23 06:00 07/27/23 06:00 Labs: Laboratory WBC 11.4 X10^3/uL (3.6-10.0) H 07/27/23 06:00 RBC 3.55 X10^6/uL (3.5-5.4) 07/27/23 06:00 Hgb 10.6 g/dL (12.0-16.0) L 07/27/23 06:00 Hct 31.7 % (36.0-47.0) L 07/27/23 06:00 MCV 89.2 fL (80.0-100.0) 07/27/23 06:00 MCH 29.8 pg (27.0-34.0) 07/27/23 06:00 MCHC 33.4 g/dL (33.0-35.0) 07/27/23 06:00 RDW 14.0 % (11.6-16.5) 07/27/23 06:00 Plt Count 152 X10^3/uL (150.0-450.0) 07/27/23 06:00 Plt Count Comment Adequate (ADEQUATE) 07/27/23 06:00 MPV 9.9 fL (7.4-11.0) 07/27/23 06:00 Neut % (Auto) 94.0 % (42.0-75.0) H 07/27/23 06:00 Lymph % (Auto) 3.3 % (21.0-51.0) L 07/27/23 06:00 [place] % (Auto) 2.6 % (0.0-13.0) 07/27/23 06:00 Eos % (Auto) 0.0 % (0.9-2.9) L 07/27/23 06:00 Baso % (Auto) 0.1 % (0.2-1.0) L 07/27/23 06:00 Neut # (Auto) 10.7 x10^3/uL (2.2-4.8) H 07/27/23 06:00 Lymph # (Auto) 0.4 X10^3/uL (1.3-2.9) L 07/27/23 06:00 [place] # (Auto) 0.3 x10^3/uL (0.3-0.8) 07/27/23 06:00 Eos # (Auto) 0.0 x10^3/uL (0.0-0.2) 07/27/23 06:00 Baso # (Auto) 0.0 X10^3/uL (0.0-0.1) 07/27/23 06:00 Absolute Nucleated RBC 0.1 /100WBC 07/27/23 06:00 Total Counted 100 07/27/23 06:00 Neutrophils % (Manual) 93 % (39-76) H 07/27/23 06:00 Band Neutrophils % 5 % (0-10) 07/27/23 06:00 Lymphocytes % (Manual) 2 % (13-43) L 07/27/23 06:00 Monocytes % (Manual) 3 % (4-9) L 07/26/23 05:26 Giant Platelets Rare 07/27/23 06:00 Plt Morphology Comment Abnormal (NORMAL) A 07/27/23 06:00 RBC Morphology Normal (NORMAL) 07/27/23 06:00 D-Dimer 3.33 ug/ml (0.0-0.57) H 07/23/23 05:17 Sodium 142 mmol/L (136-145) 07/27/23 06:00 Corrected Sodium 143 mmol/L (136-145) 07/27/23 06:00 Potassium 3.5 mmol/L (3.5-5.1) 07/27/23 06:00 Chloride 106 mmol/L (98-107) 07/27/23 06:00 Carbon Dioxide 27.7 mmol/L (21-32) 07/27/23 06:00 BUN 18 mg/dL (7-18) 07/27/23 06:00 Creatinine 0.75 mg/dL (0.55-1.02) 07/27/23 06:00 Est GFR (MDRD) Af Amer > 60 (>60) 07/27/23 06:00 Est GFR (MDRD) Non-Af > 60 (>60) 07/27/23 06:00 Glucose 143 mg/dL (65-99) H 07/27/23 06:00 Lactic Acid 0.8 mmol/L (0.4-2.0) 07/23/23 05:25 Calcium 8.2 mg/dL (8.5-10.1) L 07/27/23 06:00 Corrected Calcium 9.2 mg/dL (8.5-10.1) 07/27/23 06:00 Magnesium 2.1 mg/dL (2.0-2.9) 07/26/23 05:22 Total Bilirubin 0.50 mg/dL (0.2-1.0) 07/27/23 06:00 AST 21 Units/L (15-37) 07/27/23 06:00 ALT 17 Units/L (12-78) 07/27/23 06:00 Alkaline Phosphatase 70 Units/L (46-116) 07/27/23 06:00 Troponin I High Sens 21.8 ng/L (4.0-60.0) 07/22/23 10:59 C-Reactive Protein 3.70 mg/L (0-3.0) H 07/27/23 06:00 B-Natriuretic Peptide 423 pg/mL (0-79) H 07/27/23 06:00 Total Protein 6.2 g/dL (6.4-8.2) L 07/27/23 06:00 Albumin 2.8 g/dL (3.4-5.0) L 07/27/23 06:00 Globulin 3.4 g/dL (2.5-4.5) 07/27/23 06:00 Albumin/Globulin Ratio 0.8 Ratio (1.1-2.1) L 07/27/23 06:00 Lipase 34 Units/L (16-77) 07/22/23 09:15 Specimen Type Clean catch urine 07/22/23 16:20 Urine Color Yellow (YELLOW) 07/22/23 16:20 Urine Appearance Clear (CLEAR) 07/22/23 16:20 Urine pH 5.0 (5.0 - 8.0) 07/22/23 16:20 Ur Specific [place] 1.020 (1.000-1.030) 07/22/23 16:20 Urine Protein 1+ (NEGATIVE) 07/22/23 16:20 Urine Glucose (UA) Negative (NEGATIVE) 07/22/23 16:20 Urine Ketones 1+ (NEGATIVE) 07/22/23 16:20 Urine Blood Negative (NEGATIVE) 07/22/23 16:20 Urine Nitrite Negative (NEGATIVE) 07/22/23 16:20 Urine Bilirubin Negative (NEGATIVE) 07/22/23 16:20 Urine Urobilinogen Normal (NORMAL) 07/22/23 16:20 Ur Leukocyte Esterase Negative (NEGATIVE) 07/22/23 16:20 Urine RBC None seen /HPF (0-3) 07/22/23 16:20 Urine WBC 3-5 /HPF (0-5) 07/22/23 16:20 Ur Squamous Epith Cells Rare /HPF (NEGATIVE) 07/22/23 16:20 Amorphous Sediment Trace /HPF (NEGATIVE) 07/22/23 16:20 Urine Bacteria Trace /HPF (NEGATIVE) 07/22/23 16:20 Hyaline Casts Rare /LPF (NEGATIVE) 07/22/23 16:20 Urine Mucus Rare /HPF (NEGATIVE) 07/22/23 16:20 Ur Culture Indicated? No/not indicated 07/22/23 16:20 SARS-CoV-2 (PCR) Positive (NEGATIVE) A 07/22/23 09:28 Influenza Type A (PCR) Negative (NEGATIVE) 07/22/23 09:28 Influenza Type B (PCR) Negative (NEGATIVE) 07/22/23 09:28 RSV (PCR) Negative (NEGATIVE) 07/22/23 09:28 - Plan (1) COVID-19 virus infection Status: Acute Plan: NORMAL SALINE WITH 20MEQ POTASSIUM AT 75 ML/HR, LEVAQUIN 500MG IV DAILY, PAXLOVID, SOLU-MEDROL 40MG IV Q8H, DUONEBS TID PRN, LOVENOX 75MG DAILY, SEROQUEL 25MG PO HS, COLACE 200MG Q12H PRN, VALSARTAN 80MG DAILY. RESUME HOME MEDS OF LIPITOR AND PLAVIX (2) Acute bronchitis Status: Acute Qualifiers: Bronchitis organism: unspecified organism Qualified Code(s): J20.9 - Acute bronchitis, unspecified (3) Physical deconditioning Status: Acute (4) History of recent fall Status: Acute (5) Near syncope Status: Acute (6) Generalized weakness Status: Acute (7) HTN (hypertension) Status: Acute Qualifiers: Hypertension type: primary hypertension Qualified Code(s): I10 - Essential (primary) hypertension (8) Dementia Status: Chronic Qualifiers: Dementia type: unspecified type Dementia severity: unspecified severity Dementia behavioral or psychological symptom: without behavioral, psychotic, or mood disturbance or anxiety Qualified Code(s): F03.90 - Unspecified dementia, unspecified severity, without behavioral disturbance, psychotic disturbance, mood disturbance, and anxiety (9) Dyslipidemia Status: Chronic (10) CAD (coronary artery disease) Status: Chronic Qualifiers: Coronary Disease-Associated Artery/Lesion type: [place] artery [place] vs. transplanted heart: [place] heart Associated angina: unspecified whether angina present Qualified Code(s): I25.10 - Atherosclerotic heart disease of [place] coronary artery without angina pectoris
[2023-07-27] MEDS: LIPITOR TAB 10 MG PO SCH (20:11)
[2023-07-27] MEDS: PLAVIX PO SCH (20:12)
[2023-07-27] MEDS ORDERED: SEROquel TAB 25 mg PO SCH (21:00)
[2023-07-28] MEDS: NS + KCL 20 MEQ/L 1,000 ML IV SCH ×2 (01:24→09:34)
[2023-07-28] MEDS: SOLU-Medrol 40 MG VIAL IVP SCH ×2 (05:57→14:02)
[2023-07-28 06:37] LABS: BASOPHILS % (AUTO) 0.1 % (0.2-1.0); HEMOGLOBIN 10.8 g/dL (12.0-16.0); LYMPHOCYTES # (AUTO) 0.4 X10^3/uL (1.3-2.9); LYMPHOCYTES % (AUTO) 3.4 % (21.0-51.0); MEAN CORPUSCULAR HEMOGLOBIN 30.1 pg (27.0-34.0); MEAN CORPUSCULAR HGB CONC 33.6 g/dL (33.0-35.0); MEAN CORPUSCULAR VOLUME 89.6 fL (80.0-100.0); MEAN PLATELET VOLUME 10.5 fL (7.4-11.0); MONOCYTES # (AUTO) 0.4 x10^3/uL (0.3-0.8); MONOCYTES % (AUTO) 3.9 % (0.0-13.0); NEUTROPHILS # (AUTO) 9.7 x10^3/uL (2.2-4.8); NEUTROPHILS % (AUTO) 92.6 % (42.0-75.0); PLATELET COUNT 154 X10^3/uL (150.0-450.0); RED BLOOD COUNT 3.57 X10^6/uL (3.5-5.4); RED CELL DISTRIBUTION WIDTH 14.1 % (11.6-16.5); WHITE BLOOD COUNT 10.5 X10^3/uL (3.6-10.0)
[2023-07-28 06:55] LABS: ALANINE AMINOTRANSFERASE 21 Units/L (12-78); ALBUMIN 2.7 g/dL (3.4-5.0); ALKALINE PHOSPHATASE 66 Units/L (46-116); ASPARTATE AMINO TRANSFERASE 18 Units/L (15-37); BLOOD UREA NITROGEN 16 mg/dL (7-18); CALCIUM 8.1 mg/dL (8.5-10.1); CARBON DIOXIDE 30.1 mmol/L (21-32); CHLORIDE 105 mmol/L (98-107); COR CA(FOR HYPOALB) 9.1 mg/dL (8.5-10.1); COR NA(FOR HYPERGLY) 143 mmol/L (136-145); GLUCOSE 139 mg/dL (65-99); SODIUM 142 mmol/L (136-145); TOTAL PROTEIN 6.1 g/dL (6.4-8.2); eGFR NON BLACK RACES > 60 (>60)
[2023-07-28 07:03] LABS: POTASSIUM 2.9 mmol/L (3.5-5.1)
--- NOTE | 2023-07-28 07:16 | RAD ---
EXAM: CHEST, 1 VIEW HISTORY: SOB; CA, SX: ANGIOPLASTY/STENTS, APPY, AVIVA, ORTHO, SPLENECTOMY COMPARISON: 07/27/2023. TECHNIQUE: AP view of the chest FINDINGS: The cardiac and mediastinal contours are normal in size. [id number] athero sclerotic plaque of the aortic knob. Lungs are hyperexpanded. Similar-appearing mild interstitial lung markings. No definite pleural effusion or pneumothorax. IMPRESSION: Hyperexpanded lungs can be seen with COPD or a good inspiratory effort. Please see recent CTA chest from 07/24/2023 for further evaluation. THIS IS AN ELECTRONICALLY VERIFIED FINAL REPORT 07/28/2023 7:12 AM - Electronically signed by Candido Han MD
[2023-07-28 07:21] LABS: BAND NEUTROPHILS % 3 % (0-10); PLATELET MORPHOLOGY COMMENT NORMAL (NORMAL)
[2023-07-28] MEDS ORDERED: CONSULT PHARMACY - POTASSIUM & MAGNESIUM XX SCH (08:00)
[2023-07-28] MEDS ORDERED: NS + KCL 40 MEQ/L 1,000 ML IV SCH (09:00)
[2023-07-28] MEDS: DIOVAN TAB 80 MG PO SCH (09:33)
[2023-07-28] MEDS: LOVENOX INJ 40 MG SYR SC SCH (09:33)
[2023-07-28] MEDS: LEVAQUIN PREMIX IV 500 MG 500 MG/100 ML BAG IV SCH (09:33)
[2023-07-28 11:24] VITALS: O2SAT 98
--- NOTE | 2023-07-28 12:29 | PCM.PROG ---
Progress Note - Progress Note for Day of Date of Exam: 07/28/23 - Subjective Subjective: IS CURRENTLY OBSERVATION STATUS FOR TREATMENT OF COVID- 19, ACUTE BRONCHITIS, PHYSICAL DECONDITIONING, RECENT FALL, NEAR SYNCOPE, GENERALIZED WEAKNESS, HTN. MEDICAL HX INCLUDES: DEMENTIA, DYSLIPIDEMIA, HX OF [place]. TODAY, PATIENT IS LYING IN BED WITH EYES CLOSED ON MORNING ROUNDS. SHE AWAKENS TO VERBAL STIMULI, BUT IS DROWSY. DAUGHTER IS AT BEDSIDE AND REPORTS THAT SHE RESTED WELL THROUGHOUT THE NIGHT. PATIENT CONTINUES TO COMPLAIN OF WEAKNESS THIS MORNING. SHE DOES ADMIT TO SLIGHT IMPROVEMENT IN WEAKNESS TODAY. NURSING STAFF REPORTS THAT PATIENT REQUIRES ASSISTANCE WITH AMBULATION. ON EXAMINATION, SCATTERED BRUISING NOTED. HEART IS REGULAR IN RATE AND RHYTHM. BILATERAL LUNGS ARE NOTED WITH DIMINISHED LUNG SOUNDS THROUGHOUT. ABDOMEN IS ROUND, SOFT, AND NON-TENDER WITH NORMAL BOWEL SOUNDS NOTED IN ALL QUADRANTS. GOOD RANGE OF MOTION NOTED TO UPPER AND LOWER EXTREMITIES WITH NO EDEMA NOTED. THERE IS BRUISING AND TENDERNESS OF LOWER EXTREMITIES AND FEET NOTED. HER VITALS THIS MORNING ARE: 97.2-56-16-98%-160/90. LABS WERE OBTAINED. WBC 10.5, RBC 3.57, HGB 10.8, HCT 32.0, PLT COUNT 154, SODIUM 142, POTASSIUM 2.9, CHLORIDE 105, BUN 16, CREATININE 0.70, GLUCOSE 139, CALCIUM 8.1, MAGNESIUM 2.0, TOTAL BILI 0.60, AST 18, ALT 21, ALK PHOS 66, CRP 2.20, BNP 253, TOTAL PROTEIN 6.1, ALBUMIN 2.7. A CHEST XRAY WAS REPEATED AND REVEALED: The cardiac and mediastinal contours are normal in size. Yissjfnp-gb-jkogyb athero sclerotic plaque of the aortic knob. Lungs are hyperexpanded. Similar-appearing mild interstitial lung markings. No definite pleural effusion or pneumothorax. SHE IS CURRENTLY RECEIVING NORMAL SALINE WITH 20MEQ POTASSIUM AT 75 ML/HR, LEVAQUIN 500MG IV DAILY, SOLU-MEDROL 40MG IV Q8H, DUONEBS TID PRN, LOVENOX 75MG DAILY, SEROQUEL 25MG PO HS, COLACE 200MG Q12H PRN, VALSARTAN 80MG DAILY. WE RESUMED HER HOME MEDICATIONS OF LIPITOR AND PLAVIX. PHYSICAL THERAPY HAS WORKED WITH HER AND RECOMMEND CONTINUED PT SERVICES A SWINGBED PRIOR TO RETURNING HOME DUE TO PHYSICAL DECONDITIONING FOLLOWING COVID-19 AND RECENT FALLS. WE ARE IN AGREEMENT. WE WILL CONTINUE WITH CURRENT PLAN OF CARE TODAY. OTHERWISE, WE PLAN TO FOLLOW UP WITH AM LABS AND CONTINUE TO MONITOR. TIME SPENT ON CLINICAL ASSESSMENT, REVIEWING LABS AND IMAGING, DECISION MAKING, AND DOCUMENTATION GREATER THAN 45 MINUTES. - Past Medical Family Social History Past Med/Fam/Surg Hx: No changes since H&P Allergies: Allergies No Known Allergies Allergy (Verified 07/21/23 15:03) - Review of Systems ROS: No change since H&P - Vital Signs and I&O's Vital Signs: Vital Signs Temperature 97.2 F Pulse Rate [Left Brachial] 56 Respiratory Rate 16 Blood Pressure [Right Arm] 162/90 O2 Sat by Pulse Oximetry 98 Intake and Output: Intake & Output 07/26/23 07/27/23 07/28/23 07/29/23 11:59 11:59 11:59 11:59 Intake Total 2208 / 2208 2811 / 2811 2506 / 2506 Balance 2208 / 2208 2811 / 2811 2506 / 2506 - Physical Exam Oriented: Normal Eyes: Normal Ear: Normal Nose: Normal Throat: Normal Respiratory: Normal Cardiovascular: Normal : Normal Auscultation: Bowel Sounds: Normal Tenderness: Normal Skin: Normal Musculoskeletal: Normal Psychiatric: Normal Mood Description: Calm Affect: Normal Speech Pattern: Clear, Appropriate - Laboratory and Diagnostics Result Diagrams: 07/28/23 05:35 07/28/23 05:35 Labs: Laboratory WBC 10.5 X10^3/uL (3.6-10.0) H 07/28/23 05:35 RBC 3.57 X10^6/uL (3.5-5.4) 07/28/23 05:35 Hgb 10.8 g/dL (12.0-16.0) L 07/28/23 05:35 Hct 32.0 % (36.0-47.0) L 07/28/23 05:35 MCV 89.6 fL (80.0-100.0) 07/28/23 05:35 MCH 30.1 pg (27.0-34.0) 07/28/23 05:35 MCHC 33.6 g/dL (33.0-35.0) 07/28/23 05:35 RDW 14.1 % (11.6-16.5) 07/28/23 05:35 Plt Count 154 X10^3/uL (150.0-450.0) 07/28/23 05:35 Plt Count Comment Adequate (ADEQUATE) 07/28/23 05:35 MPV 10.5 fL (7.4-11.0) 07/28/23 05:35 Neut % (Auto) 92.6 % (42.0-75.0) H 07/28/23 05:35 Lymph % (Auto) 3.4 % (21.0-51.0) L 07/28/23 05:35 Rogers % (Auto) 3.9 % (0.0-13.0) 07/28/23 05:35 Eos % (Auto) 0.0 % (0.9-2.9) L 07/28/23 05:35 Baso % (Auto) 0.1 % (0.2-1.0) L 07/28/23 05:35 Neut # (Auto) 9.7 x10^3/uL (2.2-4.8) H 07/28/23 05:35 Lymph # (Auto) 0.4 X10^3/uL (1.3-2.9) L 07/28/23 05:35 [place] # (Auto) 0.4 x10^3/uL (0.3-0.8) 07/28/23 05:35 Eos # (Auto) 0.0 x10^3/uL (0.0-0.2) 07/28/23 05:35 Baso # (Auto) 0.0 X10^3/uL (0.0-0.1) 07/28/23 05:35 Absolute Nucleated RBC 0.0 /100WBC 07/28/23 05:35 Total Counted 100 07/28/23 05:35 Neutrophils % (Manual) 92 % (39-76) H 07/28/23 05:35 Band Neutrophils % 3 % (0-10) 07/28/23 05:35 Lymphocytes % (Manual) 2 % (13-43) L 07/28/23 05:35 Monocytes % (Manual) 3 % (4-9) L 07/28/23 05:35 Giant Platelets Rare 07/27/23 06:00 Plt Morphology Comment Normal (NORMAL) 07/28/23 05:35 RBC Morphology Normal (NORMAL) 07/28/23 05:35 D-Dimer 3.33 ug/ml (0.0-0.57) H 07/23/23 05:17 Sodium 142 mmol/L (136-145) 07/28/23 05:35 Corrected Sodium 143 mmol/L (136-145) 07/28/23 05:35 Potassium 2.9 mmol/L (3.5-5.1) L* 07/28/23 05:35 Chloride 105 mmol/L (98-107) 07/28/23 05:35 Carbon Dioxide 30.1 mmol/L (21-32) 07/28/23 05:35 BUN 16 mg/dL (7-18) 07/28/23 05:35 Creatinine 0.70 mg/dL (0.55-1.02) 07/28/23 05:35 Est GFR (MDRD) Af Amer > 60 (>60) 07/28/23 05:35 Est GFR (MDRD) Non-Af > 60 (>60) 07/28/23 05:35 Glucose 139 mg/dL (65-99) H 07/28/23 05:35 Lactic Acid 0.8 mmol/L (0.4-2.0) 07/23/23 05:25 Calcium 8.1 mg/dL (8.5-10.1) L 07/28/23 05:35 Corrected Calcium 9.1 mg/dL (8.5-10.1) 07/28/23 05:35 Magnesium 2.0 mg/dL (2.0-2.9) 07/28/23 05:35 Total Bilirubin 0.60 mg/dL (0.2-1.0) 07/28/23 05:35 AST 18 Units/L (15-37) 07/28/23 05:35 ALT 21 Units/L (12-78) 07/28/23 05:35 Alkaline Phosphatase 66 Units/L (46-116) 07/28/23 05:35 Troponin I High Sens 21.8 ng/L (4.0-60.0) 07/22/23 10:59 C-Reactive Protein 2.20 mg/L (0-3.0) 07/28/23 05:35 B-Natriuretic Peptide 253 pg/mL (0-79) H 07/28/23 05:35 Total Protein 6.1 g/dL (6.4-8.2) L 07/28/23 05:35 Albumin 2.7 g/dL (3.4-5.0) L 07/28/23 05:35 Globulin 3.4 g/dL (2.5-4.5) 07/28/23 05:35 Albumin/Globulin Ratio 0.8 Ratio (1.1-2.1) L 07/28/23 05:35 Lipase 34 Units/L (16-77) 07/22/23 09:15 Specimen Type Clean catch urine 07/22/23 16:20 Urine Color Yellow (YELLOW) 07/22/23 16:20 Urine Appearance Clear (CLEAR) 07/22/23 16:20 Urine pH 5.0 (5.0 - 8.0) 07/22/23 16:20 Ur Specific [place] 1.020 (1.000-1.030) 07/22/23 16:20 Urine Protein 1+ (NEGATIVE) 07/22/23 16:20 Urine Glucose (UA) Negative (NEGATIVE) 07/22/23 16:20 Urine Ketones 1+ (NEGATIVE) 07/22/23 16:20 Urine Blood Negative (NEGATIVE) 07/22/23 16:20 Urine Nitrite Negative (NEGATIVE) 07/22/23 16:20 Urine Bilirubin Negative (NEGATIVE) 07/22/23 16:20 Urine Urobilinogen Normal (NORMAL) 07/22/23 16:20 Ur Leukocyte Esterase Negative (NEGATIVE) 07/22/23 16:20 Urine RBC None seen /HPF (0-3) 07/22/23 16:20 Urine WBC 3-5 /HPF (0-5) 07/22/23 16:20 Ur Squamous Epith Cells Rare /HPF (NEGATIVE) 07/22/23 16:20 Amorphous Sediment Trace /HPF (NEGATIVE) 07/22/23 16:20 Urine Bacteria Trace /HPF (NEGATIVE) 07/22/23 16:20 Hyaline Casts Rare /LPF (NEGATIVE) 07/22/23 16:20 Urine Mucus Rare /HPF (NEGATIVE) 07/22/23 16:20 Ur Culture Indicated? No/not indicated 07/22/23 16:20 SARS-CoV-2 (PCR) Positive (NEGATIVE) A 07/22/23 09:28 Influenza Type A (PCR) Negative (NEGATIVE) 07/22/23 09:28 Influenza Type B (PCR) Negative (NEGATIVE) 07/22/23 09:28 RSV (PCR) Negative (NEGATIVE) 07/22/23 09:28 - Plan (1) COVID-19 virus infection Status: Acute Plan: NORMAL SALINE WITH 20MEQ POTASSIUM AT 75 ML/HR, LEVAQUIN 500MG IV DAILY, PAXLOVID, SOLU-MEDROL 40MG IV Q8H, DUONEBS TID PRN, LOVENOX 75MG DAILY, SEROQUEL 25MG PO HS, COLACE 200MG Q12H PRN, VALSARTAN 80MG DAILY. RESUME HOME MEDS OF LIPITOR AND PLAVIX (2) Acute bronchitis Status: Acute Qualifiers: Bronchitis organism: unspecified organism Qualified Code(s): J20.9 - Acute bronchitis, unspecified (3) Physical deconditioning Status: Acute (4) History of recent fall Status: Acute (5) Near syncope Status: Acute (6) Generalized weakness Status: Acute (7) HTN (hypertension) Status: Acute Qualifiers: Hypertension type: primary hypertension Qualified Code(s): I10 - Essential (primary) hypertension (8) Dementia Status: Chronic Qualifiers: Dementia type: unspecified type Dementia severity: unspecified severity Dementia behavioral or psychological symptom: without behavioral, psychotic, or mood disturbance or anxiety Qualified Code(s): F03.90 - Unspecified dementia, unspecified severity, without behavioral disturbance, psychotic disturbance, mood disturbance, and anxiety (9) Dyslipidemia Status: Chronic (10) CAD (coronary artery disease) Status: Chronic Qualifiers: Coronary Disease-Associated Artery/Lesion type: [place] artery [place] vs. transplanted heart: [place] heart Associated angina: unspecified whether angina present Qualified Code(s): I25.10 - Atherosclerotic heart disease of [place] coronary artery without angina pectoris
[2023-07-28 15:30] VITALS: BP 137/75; PULSE 60; RESP 18; TEMP 97.5
== END 2023-07-28 15:59 | disposition swing bed (61) ==
LOC: ER 08:39 → MED/SURG 08:39
PROVIDERS: ADMIT Internal Medicine; ATTEND Internal Medicine
DX: R79.82 Elevated C-reactive protein (CRP); R06.02 Shortness of breath; U07.1 COVID-19; E83.42 Hypomagnesemia; I10 Essential (primary) hypertension; I25.10 Atherosclerotic heart disease of native coronary artery without angina pectoris; R41.82 Altered mental status, unspecified; J20.8 Acute bronchitis due to other specified organisms; Z91.81 History of falling; R53.1 Weakness; R55 Syncope and collapse; E87.6 Hypokalemia; R44.1 Visual hallucinations; R26.89 Other abnormalities of gait and mobility; E78.5 Hyperlipidemia, unspecified; W18.39XA Other fall on same level, initial encounter; F03.90 Unspecified dementia, unspecified severity, without behavioral disturbance, psychotic disturbance, mood disturbance, and anxiety

== ENCOUNTER 2023-07-28 16:00 | Inpatient (IN) ==
[2023-07-28] MEDS ORDERED: DUONEB 0.5 MG/3 MG (3 mL) NEB PRN (16:08)
[2023-07-28 16:33] VITALS: BMI 19.3
[2023-07-28] MEDS: LIPITOR TAB 10 MG PO SCH (20:59)
[2023-07-28] MEDS: PLAVIX PO SCH (20:59)
[2023-07-28] MEDS: SEROquel TAB 25 mg PO SCH (21:00)
[2023-07-28] MEDS ORDERED: ATIVAN INJ 2 MG VIAL ONE (21:28)
[2023-07-28] MEDS: ATIVAN INJ 2 MG VIAL IVP ONE (21:34)
--- NOTE | 2023-07-29 09:48 | DR.UPDATE ---
H&P Update Prescription drug monitoring program results: PDMP reviewed and no concerns identified H&P Reviewed: Yes Any changes to H&P?: Yes Changes noted:: WAS CHANGED TO SWINGBED STATUS, INPATIENT, FOR PHYSICAL THERAPY AND REHAB DUE TO PHYSICAL DECONDITIONING FOLLOWING COVID, WEAKNESS, RECENT FALLS. SHE IS ALSO BEING TREATED FOR ACUTE BRONCHITIS. WE WILL CONTINUE HER MEDICATIONS OF LEVAQUIN PO DAILY, LOVENOX 40MG SC DAILY, DUONEBS TID PRN, LIPITOR 10MG HS, PLAVIX 75MG HS, COLACE 200MG PO Q12H PRN, SEROQUEL 12.5MG HS, AND VALSARTAN 80MG DAILY. WE WILL HAVE PHYSICAL THERAPY WORK WITH HER DAILY. OTHERWISE, WE WILL FOLLOW UP WITH AM LABS AND CONTINUE TO MONITOR. TIME SPENT ON CLINICAL ASSESSMENT, REVIEWING LABS AND IMAGING, DECISION MAKING, AND DOCUMENTATION GREATER THAN 45 MINUTES. Patient was examined?: Yes Vital Signs: Temp Pulse Resp BP Pulse Ox O2 Del Method 07/29/23 07:00 98.1 F 80 20 124/62 98 Room Air 07/28/23 19:00 98.2 F 76 20 143/70 97 Room Air 07/28/23 12:00 137/75
[2023-07-29] MEDS: LOVENOX INJ 40 MG SYR SC SCH (10:00)
[2023-07-29] MEDS: DIOVAN TAB 80 MG PO SCH (10:00)
[2023-07-29] MEDS: K-DUR TAB 20 MEQ PO SCH (10:00)
[2023-07-29] MEDS: COLACE CAP 100 MG PO PRN (10:35)
[2023-07-29] MEDS: LEVAQUIN TAB 500 MG PO SCH (10:35)
[2023-07-29] MEDS: LEVAQUIN PREMIX IV 500 MG 500 MG/100 ML BAG IV SCH (10:57)
--- NOTE | 2023-07-29 14:48 | PT/OTEVAL ---
PT/OT OBJECTIVES - HISTORY Prescription: PT Consult Diagnosis: Deconditioning s/p COVID Precautions: Fall Risk, Decreased Safety Awareness d/t Cognitive Deficits PMH: Dyslipedemia, [place], Dementia, Cardiac Stents, Appendectomy, Cholecystectomy, Spleenectomy, Ortho Surgery Prior Level of Function: Independent Other: Per patient report- she resides alone in single story home with 2 steps to enter with a LHR. Reports being independent within home and short community distances without a device but does state she has been declining recently and has started to use rollator outside primarily for safety. Pt reports she has also been falling recently. Daughter present at time of evaluation and confirms information. History of Present Illness: Pt is an 88 year old female who was initially admitted to [facility] on 07/22/2023 after being diagnosed with COVID and having multiple falls at home. Pt noted to have weakness and confusion and currently unable to discharge back home independently so pt was referred for swing bed program for further increase independence and safety prior to discharge home. - COGNITION Mental Status: Alert, Oriented, Name, Place Communication Status: Verbal, Hard of Hearing (Pt wears hearing aids in both ears ) Ability to Follow Directions: 1 Step Memory Loss: Short term memory loss Affect: Calm - PAIN No signs of pain Pain Scale: No Pain Comments: No reports of pain at time of evaluation. - BED MOBILITY Rolling: Supervision Scooting: Supervision Bridging: Supervision - TRANSFERS Supine to Sit: Minimal Sit to Stand: Minimal Sit to Stand Comment: Cues for proper hand placement Sit or Stand Pivot: Minimal Toileting: Minimal Safety (requires cues for:): Hand Placement Precaution - BALANCE Static Sitting: Good Standing: Fair Dynamic Sitting: Good Standing: Fair Balance Comment: Fair- - NEUROMOTOR/SENSATION Balaji. Lower Ext Sensation: WFL Coordination: WFL Proprioception: WFL - HAND DOMINANCE Extremity Function: Hand Dominance: Right - ROM Bilateral LE ROM: WFL Muscle Tone: WFL - STRENGTH Bilateral LE Strength Number: 3 Other comment: 3+/5 - GAIT Pt. ambulates how many feet?: 150 (Pt was able to ambulate 150 ft with the use of a RW. Pt did have to stop and take standing rest breaks occasionaly. ) Amount of Assistance Required: Minimal Type of Assistive Device: Rolling Walker - OBJECTIVE MEASURES & STANDARDS Objective Measures & Standards: 30 Second Sit to Stand: 0 (because pt required min assist for transfers; however, able to complete 7 with assistance) - TREATMENT Date: 07/29/23 Time: 08:15 Treatment Type: Evaluation Treatment Provided: Gait, Therapeutic Excersises - TOTAL TREATMENT TIME Total Time: 145 - POST ASSESSMENT Post Assessment Comment: Pt was found supine in bed in room and agreeable to participation in PT services. Pt's daughter also present and assisted to confirm PLOF and history. Pt without any complaints of pain at time of evaluation. Pt required supervision for rolling, scooting and repositioning in bed. Pt min assist for supine to sit and sit to stand from various surfaces requiring cues for proper handplacement and facilitation of COM over VANDANA. Pt able to complete 7 sit to stand transfers in 30 seconds with min assist. Gait training performed with FWW and min assist with focus on maintaining close walker approximation, upright posture and safety with obstacle negotiation. Pt able to ambulate 150ft before requiring standing theraeutic rest breaks. Pt performed sit to stand transfers from various surfaces and heights to promote increased independence with mobility tasks. Pt was requesting to take a shower this date, required min assist to step over threshold in shower and then initially sat on shower bench. Pt able to assist with bathing tasks but touch assist for standing for rinsing tasks. Pt assisted to dress as well. Pt agreeable to sit in recliner following session- left with daughter in room and all needs met. Pt would benefit from continued participation in PT services to address remaining deficits and facilitate highest level of function and safe discharge. - EXIT DISPOSITION Exit Position: CHAIR Call light in reach: Yes Bed Alarm On: N/A Comments: Pt was left in chair, with her daughter in the room with her PT/OT ASSESSMENT - PT Problem List: Decreased Bed Mobility, Decreased Transfers, Decreased Gait, Decreased Balance, Decreased Safety, Decreased LE Strength - PT GOALS Short Term Goals Days: 10 Mobility: Pt will perform bed mobility tasks with mod I Transfers: Pt will perform functional transfers with mod I Gait: Pt will ambulate 500ft, using a FWW, with Mod [place] Balance: Pt will increase static standing balance to good ROM/Strength: Pt will increase LE strength to a 4/5 Nurse Sexual Assault Goals Days: 20 Mobility: - Transfers: - Gait: Pt will ambulate 200ft without a device with Complete [place]. Balance: Pt will increase dynamic standing balance to fair+/good- ROM/Strength: Pt will increase BLE strength to 5/5 Others: Pt will ascend/descend 3 stairs with LHR with mod I - PATIENT GOALS Patient/Family Goals: Pt and family wants to get stronger and go home Goals Discussed with Patient/Family: Yes Rehabilitation Potential: Good to meet stated goals Justification for Potential: Facilitate highest level of function and safe discharge planning Weakness and Barriers: None - PLAN Suggested Treatment Plan: Bed Mobility Training, Therapeutic Activity, Gait Training, Therapeutic Ex with HEP - FREQUENCY AND DURATION PT: 5-6x/week x 20 days Expected Continuation of Care at Discharge: Home Health
--- NOTE | 2023-07-30 15:18 | PT/OTEVAL ---
PT/OT OBJECTIVES - HISTORY Prescription: OT Consult Diagnosis: Deconditioning s/p COVID Precautions: Fall risk, Decreased safety awareness d/t cognitive deficits PMH: Dyslipedemia, [place], dementia, cardiac stents, appendectomy, cholecystectomy, spleenectomy, ortho surgery Prior Level of Function: Independent Other: Per pt report pt lives alone in a 1 story home with a car port where there is 1 step and a hand rail going up on the L side. Pt is (I) with ADLs and IADLs. Pt does not use AE however has a rollator, for outside use due to recent decline. History of Present Illness: Pt is a 88 year old female who was initially admitted to [facility] on 07/22/23 after being dx with COVID and having multiple falls at home. Pt noted to have weakness and confusion and currently unable to discharge back home (I) so pt was referred for swing bed program to further increase (I) with functional ADLs and safety needed for d/c planning - COGNITION Mental Status: Alert, Oriented, Name, Place Communication Status: Verbal, Hard of Hearing (Pt has hearing aids in B ears) Ability to Follow Directions: 1 Step Memory Loss: Short term memory loss Affect: Calm - PAIN No signs of pain Pain Scale: No Pain Comments: No reports of pain at time of evaluation. Hip Pain Scale: No Pain - TRANSFERS Sit to Stand: Supervision (CGA needed for unsteadiness), Minimal Toileting: Minimal Safety (requires cues for:): Hand Placement Precaution - ADL'S Upper Body ADL: Minimum Lower Body ADL: Moderate Lower Body ADL: Can not reach feet Toileting: Minimum Bathing: Minimum - BALANCE Static Sitting: Good Standing: Fair Balance Comment: Fair- Dynamic Sitting: Good Standing: Poor Balance Comment: Fair- - NEUROMOTOR/SENSATION [place]. Upper & Lower Ext. Sensation: WFL Coordination: WFL [place]. Lower Ext Sensation: WFL Coordination: WFL Proprioception: WFL [place]. Upper Ext Sensation: WFL Coordination: WFL - HAND DOMINANCE Extremity Function: Hand Dominance: Right - ROM Bilateral UE ROM: WFL - STRENGTH Bilateral UE Strength Number: 3 Bilateral LE Strength Number: 3 Other comment: 3+/5 - TREATMENT Date: 07/30/23 Time: 13:00 Treatment Type: Evaluation Treatment Provided: Therapeutic Activities, Therapeutic Excersises - TOTAL TREATMENT TIME Total Time: 60 - POST ASSESSMENT Post Assessment Comment: Pt was able to give case history, however was slightly confused with hx. Pt was seen for skilled OT to assess CLOF with ADL self care skills. Pt requires increased A with ADLs at this time including LB dressing, toileting and grooming. Pt functionally AMB with CGA for safety with unsteadiness. Pt completed several transfers. Pt would benefit from skilled OT services to address listed deficits with ADLs and functional ADL m obility/transfers. - EXIT DISPOSITION Exit Position: CHAIR Call light in reach: Yes PT/OT ASSESSMENT - OT Problem List: Decreased Mobility ADL's, Decreased Safety Aware, Decreased Dressing, Decreased Bathing, Decreased Grooming, Decreased UE Strength - PT GOALS Short Term Goals Days: 10 Mobility: Pt will perform bed mobility tasks with mod I Transfers: Pt will perform functional transfers with mod I Gait: Pt will ambulate 500ft, using a FWW, with Mod [place] Balance: Pt will increase static standing balance to good ROM/Strength: Pt will increase LE strength to a 4/5 Corporate Counselor Goals Days: 20 Mobility: - Transfers: - Gait: Pt will ambulate 200ft without a device with Complete [place]. Balance: Pt will increase dynamic standing balance to fair+/good- ROM/Strength: Pt will increase BLE strength to 5/5 Others: Pt will ascend/descend 3 stairs with LHR with mod I - PATIENT GOALS Patient/Family Goals: To go home and walk. Goals Discussed with Patient/Family: Yes Rehabilitation Potential: Good to meet stated goals Justification for Potential: To facilitate highest level of ADL function needed for safe d/c planning. Weakness and Barriers: None - PLAN Suggested Treatment Plan: Therapeutic Activity, Self Care Training, Neuro Re- education, Therapeutic Ex with HEP, Patient Education, Family Education - FREQUENCY AND DURATION OT: 3-5x a week x 20 days. Expected Continuation of Care at Discharge: Home Health
[2023-07-31 06:15] LABS: BASOPHILS % (AUTO) 0.2 % (0.2-1.0); EOSINOPHILS # (AUTO) 0.2 x10^3/uL (0.0-0.2); EOSINOPHILS % (AUTO) 1.7 % (0.9-2.9); HEMOGLOBIN 10.3 g/dL (12.0-16.0); LYMPHOCYTES % (AUTO) 10.8 % (21.0-51.0); MEAN CORPUSCULAR HEMOGLOBIN 29.8 pg (27.0-34.0); MEAN CORPUSCULAR HGB CONC 33.2 g/dL (33.0-35.0); MEAN CORPUSCULAR VOLUME 89.8 fL (80.0-100.0); MEAN PLATELET VOLUME 9.8 fL (7.4-11.0); MONOCYTES # (AUTO) 0.9 x10^3/uL (0.3-0.8); MONOCYTES % (AUTO) 9.9 % (0.0-13.0); NEUTROPHILS # (AUTO) 7.4 x10^3/uL (2.2-4.8); NEUTROPHILS % (AUTO) 77.4 % (42.0-75.0); PLATELET COUNT 148 X10^3/uL (150.0-450.0); RED BLOOD COUNT 3.45 X10^6/uL (3.5-5.4); RED CELL DISTRIBUTION WIDTH 14.6 % (11.6-16.5); WHITE BLOOD COUNT 9.5 X10^3/uL (3.6-10.0)
[2023-07-31 06:27] LABS: ALANINE AMINOTRANSFERASE 22 Units/L (12-78); ALBUMIN 2.2 g/dL (3.4-5.0); ALKALINE PHOSPHATASE 59 Units/L (46-116); ASPARTATE AMINO TRANSFERASE 22 Units/L (15-37); BLOOD UREA NITROGEN 34 mg/dL (7-18); CALCIUM 7.7 mg/dL (8.5-10.1); CARBON DIOXIDE 30.9 mmol/L (21-32); CHLORIDE 107 mmol/L (98-107); COR CA(FOR HYPOALB) 9.1 mg/dL (8.5-10.1); CREATININE 0.86 mg/dL (0.55-1.02); GLUCOSE 83 mg/dL (65-99); POTASSIUM 3.2 mmol/L (3.5-5.1); SODIUM 141 mmol/L (136-145); TOTAL PROTEIN 5.1 g/dL (6.4-8.2); eGFR NON BLACK RACES > 60 (>60)
[2023-07-31] MEDS ORDERED: CONSULT PHARMACY - POTASSIUM & MAGNESIUM XX SCH (07:00)
[2023-07-31] MEDS: MEGACE PO SCH (10:22)
[2023-07-31] MEDS: K-DUR TAB 20 MEQ PO SCH (10:23)
[2023-08-01 06:46] LABS: MAGNESIUM 1.8 mg/dL (2.0-2.9); POTASSIUM 4.2 mmol/L (3.5-5.1)
[2023-08-01] MEDS ORDERED: CONSULT PHARMACY - POTASSIUM & MAGNESIUM XX SCH (20:00)
[2023-08-01] MEDS: MAG-OX TAB PO SCH (21:00)
[2023-08-03 05:30] LABS: BASOPHILS # (AUTO) 0.1 X10^3/uL (0.0-0.1); BASOPHILS % (AUTO) 0.5 % (0.2-1.0); EOSINOPHILS # (AUTO) 0.2 x10^3/uL (0.0-0.2); EOSINOPHILS % (AUTO) 2.1 % (0.9-2.9); HEMATOCRIT 30.2 % (36.0-47.0); LYMPHOCYTES # (AUTO) 0.6 X10^3/uL (1.3-2.9); LYMPHOCYTES % (AUTO) 5.3 % (21.0-51.0); MEAN CORPUSCULAR VOLUME 90.7 fL (80.0-100.0); MEAN PLATELET VOLUME 9.5 fL (7.4-11.0); MONOCYTES # (AUTO) 1.2 x10^3/uL (0.3-0.8); MONOCYTES % (AUTO) 10.6 % (0.0-13.0); NEUTROPHILS % (AUTO) 81.5 % (42.0-75.0); PLATELET COUNT 147 X10^3/uL (150.0-450.0); RED BLOOD COUNT 3.33 X10^6/uL (3.5-5.4); RED CELL DISTRIBUTION WIDTH 14.9 % (11.6-16.5)
[2023-08-03 05:42] LABS: ALANINE AMINOTRANSFERASE 21 Units/L (12-78); ALBUMIN 2.1 g/dL (3.4-5.0); ALKALINE PHOSPHATASE 55 Units/L (46-116); ASPARTATE AMINO TRANSFERASE 20 Units/L (15-37); BLOOD UREA NITROGEN 13 mg/dL (7-18); CALCIUM 8.1 mg/dL (8.5-10.1); CARBON DIOXIDE 26.1 mmol/L (21-32); CHLORIDE 105 mmol/L (98-107); COR CA(FOR HYPOALB) 9.6 mg/dL (8.5-10.1); CREATININE 0.84 mg/dL (0.55-1.02); GLUCOSE 88 mg/dL (65-99); MAGNESIUM 1.9 mg/dL (2.0-2.9); POTASSIUM 4.4 mmol/L (3.5-5.1); SODIUM 137 mmol/L (136-145); TOTAL PROTEIN 5.7 g/dL (6.4-8.2); eGFR NON BLACK RACES > 60 (>60)
[2023-08-03] MEDS ORDERED: CONSULT PHARMACY - POTASSIUM & MAGNESIUM XX SCH (07:00)
[2023-08-03] MEDS: MAG-OX TAB PO SCH (08:47)
[2023-08-03] MEDS: NS 1,000 ML IV 1,000 ML IV SCH (15:28)
--- NOTE | 2023-08-03 23:35 | EKG ---
Test Reason : chest pain Blood Pressure : */* mmHG Vent. Rate : 84 BPM Atrial Rate : 84 BPM P-R Int : 126 ms QRS Dur : 82 ms QT Int : 362 ms P-R-T Axes : 55 44 -66 degrees QTc Int : 427 ms Normal sinus rhythm T wave abnormality, consider inferior ischemia Abnormal ECG When compared with ECG of 22-JUL-2023 09:06, aberrant conduction is no longer present Confirmed by Zach Wilson MD ([id number]) on 08/04/2023 7:37:34 AM Referred By: Confirmed By: Zcah Wilson MD
[2023-08-04] MEDS: K-LYTE EFFERVESCENT PO SCH (09:30)
[2023-08-05 05:26] LABS: BASOPHILS % (AUTO) 0.4 % (0.2-1.0); EOSINOPHILS # (AUTO) 0.2 x10^3/uL (0.0-0.2); EOSINOPHILS % (AUTO) 2.4 % (0.9-2.9); HEMATOCRIT 27.1 % (36.0-47.0); HEMOGLOBIN 9.2 g/dL (12.0-16.0); LYMPHOCYTES # (AUTO) 0.9 X10^3/uL (1.3-2.9); LYMPHOCYTES % (AUTO) 11.5 % (21.0-51.0); MEAN CORPUSCULAR HEMOGLOBIN 30.2 pg (27.0-34.0); MEAN CORPUSCULAR HGB CONC 33.8 g/dL (33.0-35.0); MEAN CORPUSCULAR VOLUME 89.5 fL (80.0-100.0); MEAN PLATELET VOLUME 8.9 fL (7.4-11.0); MONOCYTES % (AUTO) 12.3 % (0.0-13.0); NEUTROPHILS # (AUTO) 5.7 x10^3/uL (2.2-4.8); NEUTROPHILS % (AUTO) 73.4 % (42.0-75.0); PLATELET COUNT 137 X10^3/uL (150.0-450.0); RED BLOOD COUNT 3.03 X10^6/uL (3.5-5.4); RED CELL DISTRIBUTION WIDTH 15.5 % (11.6-16.5); WHITE BLOOD COUNT 7.8 X10^3/uL (3.6-10.0)
[2023-08-05 05:45] LABS: ALANINE AMINOTRANSFERASE 20 Units/L (12-78); ALKALINE PHOSPHATASE 52 Units/L (46-116); ASPARTATE AMINO TRANSFERASE 24 Units/L (15-37); BLOOD UREA NITROGEN 11 mg/dL (7-18); CALCIUM 7.9 mg/dL (8.5-10.1); CARBON DIOXIDE 21.8 mmol/L (21-32); CHLORIDE 108 mmol/L (98-107); COR CA(FOR HYPOALB) 9.5 mg/dL (8.5-10.1); CREATININE 0.74 mg/dL (0.55-1.02); GLUCOSE 83 mg/dL (65-99); MAGNESIUM 1.8 mg/dL (2.0-2.9); POTASSIUM 3.7 mmol/L (3.5-5.1); SODIUM 138 mmol/L (136-145); TOTAL PROTEIN 5.6 g/dL (6.4-8.2); eGFR NON BLACK RACES > 60 (>60)
[2023-08-05] MEDS ORDERED: CONSULT PHARMACY - POTASSIUM & MAGNESIUM XX SCH (06:00)
[2023-08-05] MEDS: MAG-OX TAB PO SCH (08:44)
[2023-08-05] MEDS: K-DUR TAB 20 MEQ PO SCH (08:44)
--- NOTE | 2023-08-05 12:23 | PCM.PROG ---
Progress Note - Progress Note for Day of Date of Exam: 07/31/23 - Subjective Subjective: IS CURRENTLY INPATIENT SWINGBED STATUS FOR PHYSICAL THERAPY AND REHAB DUE TO PHYSICAL DECONDITIONING FOLLOWING COVID, WEAKNESS, RECENT FALLS. HER MEDICAL HX INCLUDES: DEMENTIA, DYSLIPIDEMIA, HX OF PR. TODAY, PATIENT IS ALERT AND ORIENTED, SITTING UP IN BED ON MORNING ROUNDS. DAUGHTER IS AT BEDSIDE AND REPORTS THAT SHE RESTED WELL THROUGHOUT THE NIGHT. PATIENT CONTINUES TO COMPLAIN OF WEAKNESS THIS MORNING, BUT DOES REPORT SOME IMPROVEMENT. ON EXAMINATION, SCATTERED BRUISING NOTED. HEART IS REGULAR IN RATE AND RHYTHM. BILATERAL LUNGS ARE NOTED WITH DIMINISHED LUNG SOUNDS THROUGHOUT. ABDOMEN IS ROUND, SOFT, AND NON-TENDER WITH NORMAL BOWEL SOUNDS NOTED IN ALL QUADRANTS. GOOD RANGE OF MOTION NOTED TO UPPER AND LOWER EXTREMITIES WITH NO EDEMA NOTED. THERE IS BRUISING AND TENDERNESS OF LOWER EXTREMITIES AND FEET NOTED. HER VITALS THIS MORNING ARE: 98.3-73-18-98%-118/57. LABS WERE OBTAINED. WBC 9.5, RBC 3.45, HGB 10.3, HCT 31.0, PLT COUNT 148, SODIUM 141, POTASSIUM 3.2, CHLORIDE 107, BUN 34, CREATININE 0.86, GLUCOSE 83, CALCIUM 7.7, MAGNESIUM 1.9, TOTAL BILI 0.40, AST 22, ALT 22, ALK PHOS 59, TOTAL PROTEIN 5.1, ALBUMIN 2.2. SHE IS CURRENTLY RECEIVING LEVAQUIN PO DAILY, LOVENOX 40MG SC DAILY, DUONEBS TID PRN, LIPITOR 10MG HS, PLAVIX 75MG HS, COLACE 200MG PO Q12H PRN, MEGACE 40MG BID, SEROQUEL 12.5MG HS, AND VALSARTAN 80MG DAILY. PHYSICAL THERAPY WILL CONTINUE TO WORK WITH PATIENT DAILY. WE WILL CONTINUE WITH CURRENT PLAN OF CARE TODAY. OTHERWISE, WE PLAN TO FOLLOW UP WITH AM LABS AND CONTINUE TO MONITOR. TIME SPENT ON CLINICAL ASSESSMENT, REVIEWING LABS AND IMAGING, DECISION MAKING, AND DOCUMENTATION GREATER THAN 45 MINUTES. - Past Medical Family Social History Past Med/Fam/Surg Hx: No changes since H&P Allergies: Allergies No Known Allergies Allergy (Verified 07/21/23 15:03) - Review of Systems ROS: No change since H&P - Vital Signs and I&O's Vital Signs: Vital Signs Temperature 98.9 F Pulse Rate [Brachial] 75 Respiratory Rate 20 Blood Pressure [Right Arm] 135/62 O2 Sat by Pulse Oximetry 98 Intake and Output: Intake & Output 08/03/23 08/04/23 08/05/23 08/06/23 11:59 11:59 11:59 11:59 Intake Total 1020 / 1020 1623 / 1623 3172 / 3172 Balance 1020 / 1020 1623 / 1623 3172 / 3172 - Physical Exam Oriented: Normal Eyes: Normal Ear: Normal Nose: Normal Throat: Normal Respiratory: Generalized, Diminished Cardiovascular: Normal : Normal Auscultation: Bowel Sounds: Normal Palpation: Normal Tenderness: Normal Skin: Bruising Musculoskeletal: Normal Psychiatric: Normal Mood Description: Calm Affect: Normal Speech Pattern: Clear, Appropriate - Laboratory and Diagnostics Result Diagrams: 08/05/23 04:28 08/05/23 04:28 Labs: Laboratory WBC 7.8 X10^3/uL (3.6-10.0) 08/05/23 04:28 RBC 3.03 X10^6/uL (3.5-5.4) L 08/05/23 04:28 Hgb 9.2 g/dL (12.0-16.0) L 08/05/23 04:28 Hct 27.1 % (36.0-47.0) L 08/05/23 04:28 MCV 89.5 fL (80.0-100.0) 08/05/23 04:28 MCH 30.2 pg (27.0-34.0) 08/05/23 04:28 MCHC 33.8 g/dL (33.0-35.0) 08/05/23 04:28 RDW 15.5 % (11.6-16.5) 08/05/23 04:28 Plt Count 137 X10^3/uL (150.0-450.0) L 08/05/23 04:28 MPV 8.9 fL (7.4-11.0) 08/05/23 04:28 Neut % (Auto) 73.4 % (42.0-75.0) 08/05/23 04:28 Lymph % (Auto) 11.5 % (21.0-51.0) L 08/05/23 04:28 [place] % (Auto) 12.3 % (0.0-13.0) 08/05/23 04:28 Eos % (Auto) 2.4 % (0.9-2.9) 08/05/23 04:28 Baso % (Auto) 0.4 % (0.2-1.0) 08/05/23 04:28 Neut # (Auto) 5.7 x10^3/uL (2.2-4.8) H 08/05/23 04:28 Lymph # (Auto) 0.9 X10^3/uL (1.3-2.9) L 08/05/23 04:28 [place] # (Auto) 1.0 x10^3/uL (0.3-0.8) H 08/05/23 04:28 Eos # (Auto) 0.2 x10^3/uL (0.0-0.2) 08/05/23 04:28 Baso # (Auto) 0.0 X10^3/uL (0.0-0.1) 08/05/23 04:28 Absolute Nucleated RBC 0.0 /100WBC 08/05/23 04:28 Sodium 138 mmol/L (136-145) 08/05/23 04:28 Corrected Sodium TNP 08/05/23 04:28 Potassium 3.7 mmol/L (3.5-5.1) 08/05/23 04:28 Chloride 108 mmol/L (98-107) H 08/05/23 04:28 Carbon Dioxide 21.8 mmol/L (21-32) 08/05/23 04:28 BUN 11 mg/dL (7-18) 08/05/23 04:28 Creatinine 0.74 mg/dL (0.55-1.02) 08/05/23 04:28 Est GFR (MDRD) Af Amer > 60 (>60) 08/05/23 04:28 Est GFR (MDRD) Non-Af > 60 (>60) 08/05/23 04:28 Glucose 83 mg/dL (65-99) 08/05/23 04:28 Calcium 7.9 mg/dL (8.5-10.1) L 08/05/23 04:28 Corrected Calcium 9.5 mg/dL (8.5-10.1) 08/05/23 04:28 Magnesium 1.8 mg/dL (2.0-2.9) L 08/05/23 04:28 Total Bilirubin 0.60 mg/dL (0.2-1.0) 08/05/23 04:28 AST 24 Units/L (15-37) 08/05/23 04:28 ALT 20 Units/L (12-78) 08/05/23 04:28 Alkaline Phosphatase 52 Units/L (46-116) 08/05/23 04:28 Troponin I High Sens 10.7 ng/L (4.0-60.0) 08/04/23 11:55 Total Protein 5.6 g/dL (6.4-8.2) L 08/05/23 04:28 Albumin 2.0 g/dL (3.4-5.0) L 08/05/23 04:28 Globulin 3.6 g/dL (2.5-4.5) 08/05/23 04:28 Albumin/Globulin Ratio 0.6 Ratio (1.1-2.1) L 08/05/23 04:28 - Plan (1) Physical deconditioning Status: Acute Plan: PT/OT, LEVAQUIN PO DAILY, LOVENOX 40MG SC DAILY, DUONEBS TID PRN, LIPITOR 10MG HS, PLAVIX 75MG HS, COLACE 200MG PO Q12H PRN, MEGACE 40MG BID, SEROQUEL 12.5MG HS, AND VALSARTAN 80MG DAILY. (2) Acute bronchitis Status: Acute Qualifiers: Bronchitis organism: unspecified organism (3) History of recent fall Status: Acute (4) Generalized weakness Status: Acute (5) Essential hypertension Status: Chronic (6) CAD (coronary artery disease) Status: Chronic Qualifiers: Coronary Disease-Associated Artery/Lesion type: unspecified vessel or lesion type [place] vs. transplanted heart: [place] heart Associated angina: without angina Qualified Code(s): I25.10 - Atherosclerotic heart disease of [place] coronary artery without angina pectoris (7) Dementia Status: Chronic Qualifiers: Dementia type: vascular dementia Dementia severity: mild Dementia behavioral or psychological symptom: unspecified whether behavioral, psychotic, or mood disturbance or anxiety Qualified Code(s): F01.A0 - Vascular dementia, mild, without behavioral disturbance, psychotic disturbance, mood disturbance, and anxiety (8) Dyslipidemia Status: Chronic
--- NOTE | 2023-08-06 13:46 | PCM.PROG ---
Progress Note - Progress Note for Day of Date of Exam: 08/03/23 - Subjective Subjective: IS CURRENTLY INPATIENT SWINGBED STATUS FOR PHYSICAL THERAPY AND REHAB DUE TO PHYSICAL DECONDITIONING FOLLOWING COVID, WEAKNESS, RECENT FALLS. HER MEDICAL HX INCLUDES: DEMENTIA, DYSLIPIDEMIA, HX OF [place]. TODAY, PATIENT IS ALERT AND ORIENTED, SITTING UP IN BED ON MORNING ROUNDS. DAUGHTER IS AT BEDSIDE AND REPORTS THAT SHE RESTED WELL THROUGHOUT THE NIGHT. PATIENT CONTINUES TO COMPLAIN OF WEAKNESS THIS MORNING. ON EXAMINATION, SCATTERED BRUISING NOTED. HEART IS REGULAR IN RATE AND RHYTHM. BILATERAL LUNGS ARE NOTED WITH DIMINISHED LUNG SOUNDS THROUGHOUT. ABDOMEN IS ROUND, SOFT, AND NON-TENDER WITH NORMAL BOWEL SOUNDS NOTED IN ALL QUADRANTS. GOOD RANGE OF MOTION NOTED TO UPPER AND LOWER EXTREMITIES WITH NO EDEMA NOTED. THERE IS BRUISING AND TENDERNESS OF LOWER EXTREMITIES AND FEET NOTED. HER VITALS THIS MORNING ARE: 98.6-83-18-97%-105/58. LABS WERE OBTAINED. WBC 7.8, RBC 3.03, HGB 9.2, HCT 27.1, PLT COUNT 137, SODIUM 138, POTASSIUM 3.7, CHLORIDE 108, BUN 11, CREATININE 0.74, GLUCOSE 83, CALCIUM 7.9, MAGNESIUM 1.8, AST 24, ALT 20, ALK PHOS 52, TOTAL PROTEIN 5.6, ALBUMIN 2.0. SHE IS CURRENTLY RECEIVING NORMAL SALINE AT 75 ML/HR, LEVAQUIN PO DAILY, LOVENOX 40MG SC DAILY, DUONEBS TID PRN, LIPITOR 10MG HS, PLAVIX 75MG HS, COLACE 200MG PO Q12H PRN, MEGACE 40MG BID, SEROQUEL 12.5MG HS, AND VALSARTAN 80MG DAILY. PHYSICAL THERAPY WILL CONTINUE TO WORK WITH PATIENT DAILY. WE WILL CONTINUE WITH CURRENT PLAN OF CARE TODAY. OTHERWISE, WE PLAN TO FOLLOW UP WITH AM LABS AND CONTINUE TO MONITOR. TIME SPENT ON CLINICAL ASSESSMENT, REVIEWING LABS AND IMAGING, DECISION MAKING, AND DOCUMENTATION GREATER THAN 45 MINUTES. - Past Medical Family Social History Past Med/Fam/Surg Hx: No changes since H&P Allergies: Allergies No Known Allergies Allergy (Verified 07/21/23 15:03) - Review of Systems ROS: No change since H&P - Vital Signs and I&O's Vital Signs: Vital Signs Temperature 98.0 F Pulse Rate [Brachial] 79 Respiratory Rate 20 Blood Pressure [Right Arm] 128/62 O2 Sat by Pulse Oximetry 98 Intake and Output: Intake & Output 08/04/23 08/05/23 08/06/23 08/07/23 11:59 11:59 11:59 11:59 Intake Total 1623 / 1623 3172 / 3172 2637 / 2637 Balance 1623 / 1623 3172 / 3172 263 / 2637 - Physical Exam Oriented: Normal Eyes: Normal Ear: Normal Nose: Normal Throat: Normal Respiratory: Generalized, Diminished Cardiovascular: Normal : Normal Auscultation: Bowel Sounds: Normal Tenderness: Normal Skin: Bruising Musculoskeletal: Normal Psychiatric: Normal Mood Description: Calm Affect: Normal Speech Pattern: Clear, Appropriate - Laboratory and Diagnostics Result Diagrams: 08/05/23 04:28 08/05/23 04:28 Labs: Laboratory WBC 7.8 X10^3/uL (3.6-10.0) 08/05/23 04:28 RBC 3.03 X10^6/uL (3.5-5.4) L 08/05/23 04:28 Hgb 9.2 g/dL (12.0-16.0) L 08/05/23 04:28 Hct 27.1 % (36.0-47.0) L 08/05/23 04:28 MCV 89.5 fL (80.0-100.0) 08/05/23 04:28 MCH 30.2 pg (27.0-34.0) 08/05/23 04:28 MCHC 33.8 g/dL (33.0-35.0) 08/05/23 04:28 RDW 15.5 % (11.6-16.5) 08/05/23 04:28 Plt Count 137 X10^3/uL (150.0-450.0) L 08/05/23 04:28 MPV 8.9 fL (7.4-11.0) 08/05/23 04:28 Neut % (Auto) 73.4 % (42.0-75.0) 08/05/23 04:28 Lymph % (Auto) 11.5 % (21.0-51.0) L 08/05/23 04:28 [place] % (Auto) 12.3 % (0.0-13.0) 08/05/23 04:28 Eos % (Auto) 2.4 % (0.9-2.9) 08/05/23 04:28 Baso % (Auto) 0.4 % (0.2-1.0) 08/05/23 04:28 Neut # (Auto) 5.7 x10^3/uL (2.2-4.8) H 08/05/23 04:28 Lymph # (Auto) 0.9 X10^3/uL (1.3-2.9) L 08/05/23 04:28 [place] # (Auto) 1.0 x10^3/uL (0.3-0.8) H 08/05/23 04:28 Eos # (Auto) 0.2 x10^3/uL (0.0-0.2) 08/05/23 04:28 Baso # (Auto) 0.0 X10^3/uL (0.0-0.1) 08/05/23 04:28 Absolute Nucleated RBC 0.0 /100WBC 08/05/23 04:28 Sodium 138 mmol/L (136-145) 08/05/23 04:28 Corrected Sodium TNP 08/05/23 04:28 Potassium 3.7 mmol/L (3.5-5.1) 08/05/23 04:28 Chloride 108 mmol/L (98-107) H 08/05/23 04:28 Carbon Dioxide 21.8 mmol/L (21-32) 08/05/23 04:28 BUN 11 mg/dL (7-18) 08/05/23 04:28 Creatinine 0.74 mg/dL (0.55-1.02) 08/05/23 04:28 Est GFR (MDRD) Af Amer > 60 (>60) 08/05/23 04:28 Est GFR (MDRD) Non-Af > 60 (>60) 08/05/23 04:28 Glucose 83 mg/dL (65-99) 08/05/23 04:28 Calcium 7.9 mg/dL (8.5-10.1) L 08/05/23 04:28 Corrected Calcium 9.5 mg/dL (8.5-10.1) 08/05/23 04:28 Magnesium 1.8 mg/dL (2.0-2.9) L 08/05/23 04:28 Total Bilirubin 0.60 mg/dL (0.2-1.0) 08/05/23 04:28 AST 24 Units/L (15-37) 08/05/23 04:28 ALT 20 Units/L (12-78) 08/05/23 04:28 Alkaline Phosphatase 52 Units/L (46-116) 08/05/23 04:28 Troponin I High Sens 10.7 ng/L (4.0-60.0) 08/04/23 11:55 Total Protein 5.6 g/dL (6.4-8.2) L 08/05/23 04:28 Albumin 2.0 g/dL (3.4-5.0) L 08/05/23 04:28 Globulin 3.6 g/dL (2.5-4.5) 08/05/23 04:28 Albumin/Globulin Ratio 0.6 Ratio (1.1-2.1) L 08/05/23 04:28 - Plan (1) Physical deconditioning Status: Acute Plan: PT/OT, LEVAQUIN PO DAILY, LOVENOX 40MG SC DAILY, DUONEBS TID PRN, LIPITOR 10MG HS, PLAVIX 75MG HS, COLACE 200MG PO Q12H PRN, MEGACE 40MG BID, SEROQUEL 12.5MG HS, AND VALSARTAN 80MG DAILY. (2) Acute bronchitis Status: Acute Qualifiers: Bronchitis organism: unspecified organism (3) History of recent fall Status: Acute (4) Generalized weakness Status: Acute (5) Essential hypertension Status: Chronic (6) CAD (coronary artery disease) Status: Chronic Qualifiers: Coronary Disease-Associated Artery/Lesion type: unspecified vessel or lesion type [place] vs. transplanted heart: [place] heart Associated angina: without angina Qualified Code(s): I25.10 - Atherosclerotic heart disease of [place] coronary artery without angina pectoris (7) Dementia Status: Chronic Qualifiers: Dementia type: vascular dementia Dementia severity: mild Dementia behavioral or psychological symptom: unspecified whether behavioral, psychotic, or mood disturbance or anxiety Qualified Code(s): F01.A0 - Vascular dementia, mild, without behavioral disturbance, psychotic disturbance, mood disturbance, and anxiety (8) Dyslipidemia Status: Chronic
[2023-08-08 06:09] LABS: BASOPHILS # (AUTO) 0.1 X10^3/uL (0.0-0.1); BASOPHILS % (AUTO) 0.9 % (0.2-1.0); EOSINOPHILS # (AUTO) 0.2 x10^3/uL (0.0-0.2); EOSINOPHILS % (AUTO) 3.8 % (0.9-2.9); HEMATOCRIT 26.9 % (36.0-47.0); LYMPHOCYTES # (AUTO) 0.8 X10^3/uL (1.3-2.9); LYMPHOCYTES % (AUTO) 13.9 % (21.0-51.0); MEAN CORPUSCULAR HEMOGLOBIN 30.2 pg (27.0-34.0); MEAN CORPUSCULAR HGB CONC 33.4 g/dL (33.0-35.0); MEAN CORPUSCULAR VOLUME 90.4 fL (80.0-100.0); MEAN PLATELET VOLUME 8.8 fL (7.4-11.0); MONOCYTES # (AUTO) 0.5 x10^3/uL (0.3-0.8); NEUTROPHILS # (AUTO) 4.3 x10^3/uL (2.2-4.8); NEUTROPHILS % (AUTO) 72.4 % (42.0-75.0); PLATELET COUNT 145 X10^3/uL (150.0-450.0); RED BLOOD COUNT 2.97 X10^6/uL (3.5-5.4); RED CELL DISTRIBUTION WIDTH 15.7 % (11.6-16.5); WHITE BLOOD COUNT 5.9 X10^3/uL (3.6-10.0)
[2023-08-08 06:29] LABS: ALANINE AMINOTRANSFERASE 16 Units/L (12-78); ALBUMIN 2.2 g/dL (3.4-5.0); ALKALINE PHOSPHATASE 58 Units/L (46-116); ASPARTATE AMINO TRANSFERASE 18 Units/L (15-37); BLOOD UREA NITROGEN 14 mg/dL (7-18); CALCIUM 8.1 mg/dL (8.5-10.1); CARBON DIOXIDE 21.8 mmol/L (21-32); CHLORIDE 106 mmol/L (98-107); COR CA(FOR HYPOALB) 9.5 mg/dL (8.5-10.1); CREATININE 0.76 mg/dL (0.55-1.02); GLUCOSE 87 mg/dL (65-99); POTASSIUM 3.7 mmol/L (3.5-5.1); SODIUM 136 mmol/L (136-145); TOTAL PROTEIN 5.7 g/dL (6.4-8.2); eGFR NON BLACK RACES > 60 (>60)
[2023-08-08] MEDS: MAG-OX TAB PO SCH (11:30)
--- NOTE | 2023-08-08 23:17 | RAD ---
EXAM:THORACIC SPINEHISTORY:back pain ; UnavailableCOMPARISON:None.FINDINGS:Norm al alignment of the thoracic spine is maintained. Disc space narrowing throughout the thoracic spine.. No evidence for acute fracture can be identified.IMPRESSION:Mild degenerative changes throughout the thoracic spine.No acute bony abnormalityTHIS IS AN ELECTRONICALLY VERIFIED FINAL REPORT08/08/2023 11:14 PM - Electronically signed by Deondre Thompson MD
--- NOTE | 2023-08-08 23:20 | RAD ---
EXAM:FOOT, LEFTHISTORY:pain/swelling;COMPARISON:Non e availableTECHNIQUE:Left foot radiographs, 3 views, AP, oblique and lateral projectionsFINDINGS:No fracture or dislocations.Normal joint spaces.Soft tissues are unremarkable.Small plantar calcaneal spur.IMPRESSION:No acute osseous abnormality.THIS IS AN ELECTRONICALLY VERIFIED FINAL REPORT08/08/2023 11:17 PM - Electronically signed by Walt Castañeda MD
[2023-08-11 04:59] LABS: BASOPHILS # (AUTO) 0.1 X10^3/uL (0.0-0.1); BASOPHILS % (AUTO) 1.4 % (0.2-1.0); EOSINOPHILS # (AUTO) 0.3 x10^3/uL (0.0-0.2); EOSINOPHILS % (AUTO) 7.8 % (0.9-2.9); HEMATOCRIT 28.1 % (36.0-47.0); HEMOGLOBIN 9.3 g/dL (12.0-16.0); LYMPHOCYTES # (AUTO) 0.9 X10^3/uL (1.3-2.9); LYMPHOCYTES % (AUTO) 20.2 % (21.0-51.0); MEAN CORPUSCULAR HEMOGLOBIN 30.2 pg (27.0-34.0); MEAN CORPUSCULAR HGB CONC 33.2 g/dL (33.0-35.0); MEAN CORPUSCULAR VOLUME 91.2 fL (80.0-100.0); MONOCYTES # (AUTO) 0.5 x10^3/uL (0.3-0.8); MONOCYTES % (AUTO) 11.7 % (0.0-13.0); NEUTROPHILS # (AUTO) 2.6 x10^3/uL (2.2-4.8); NEUTROPHILS % (AUTO) 58.9 % (42.0-75.0); PLATELET COUNT 147 X10^3/uL (150.0-450.0); RED BLOOD COUNT 3.08 X10^6/uL (3.5-5.4); RED CELL DISTRIBUTION WIDTH 15.6 % (11.6-16.5); WHITE BLOOD COUNT 4.5 X10^3/uL (3.6-10.0)
[2023-08-11 05:20] LABS: ALANINE AMINOTRANSFERASE 15 Units/L (12-78); ALBUMIN 2.4 g/dL (3.4-5.0); ALKALINE PHOSPHATASE 67 Units/L (46-116); ASPARTATE AMINO TRANSFERASE 20 Units/L (15-37); BLOOD UREA NITROGEN 17 mg/dL (7-18); CALCIUM 8.3 mg/dL (8.5-10.1); CARBON DIOXIDE 23.8 mmol/L (21-32); CHLORIDE 109 mmol/L (98-107); COR CA(FOR HYPOALB) 9.6 mg/dL (8.5-10.1); CREATININE 0.77 mg/dL (0.55-1.02); GLUCOSE 88 mg/dL (65-99); POTASSIUM 4.1 mmol/L (3.5-5.1); SODIUM 141 mmol/L (136-145); TOTAL PROTEIN 5.9 g/dL (6.4-8.2); eGFR NON BLACK RACES > 60 (>60)
[2023-08-11 08:03] VITALS: BP 131/66; PULSE 62; RESP 18; TEMP 98.6; O2SAT 95
--- NOTE | 2023-08-11 11:46 | PCM.PROG ---
Progress Note - Progress Note for Day of Date of Exam: 08/06/23 - Subjective Subjective: IS CURRENTLY INPATIENT SWINGBED STATUS FOR PHYSICAL THERAPY AND REHAB DUE TO PHYSICAL DECONDITIONING FOLLOWING COVID, WEAKNESS, RECENT FALLS. HER MEDICAL HX INCLUDES: DEMENTIA, DYSLIPIDEMIA, HX OF [place]. TODAY, PATIENT IS ALERT AND ORIENTED, SITTING UP IN BED ON MORNING ROUNDS. DAUGHTER IS AT BEDSIDE AND REPORTS THAT SHE RESTED WELL THROUGHOUT THE NIGHT. PATIENT CONTINUES TO COMPLAIN OF WEAKNESS THIS MORNING. ON EXAMINATION, SCATTERED BRUISING NOTED. HEART IS REGULAR IN RATE AND RHYTHM. BILATERAL LUNGS ARE NOTED WITH DIMINISHED LUNG SOUNDS THROUGHOUT. ABDOMEN IS ROUND, SOFT, AND NON-TENDER WITH NORMAL BOWEL SOUNDS NOTED IN ALL QUADRANTS. GOOD RANGE OF MOTION NOTED TO UPPER AND LOWER EXTREMITIES WITH NO EDEMA NOTED. THERE IS BRUISING AND TENDERNESS OF LOWER EXTREMITIES AND FEET NOTED. HER VITALS THIS MORNING ARE: 98.0-79-20-98%-128/62. LABS WERE OBTAINED. WBC 4.5, RBC 3.08, HGB 9.3, HCT 28.1, PLT COUNT 147, SODIUM 141, POTASSIUM 4.1, CHLORIDE 109, BUN 17, CREATININE 0.77, GLUCOSE 88, CALCIUM 8.3, MAGNESIUM 2.0, AST 20, ALT 15, ALK PHOS 67, TOTAL PROTEIN 5.9, ALBUMIN 2.4. SHE IS CURRENTLY RECEIVING NORMAL SALINE AT 75 ML/HR, LOVENOX 40MG SC DAILY, DUONEBS TID PRN, LIPITOR 10MG HS, PLAVIX 75MG HS, COLACE 200MG PO Q12H PRN, MEGACE 40MG BID, SEROQUEL 12.5MG HS, AND VALSARTAN 80MG DAILY. PHYSICAL THERAPY WILL CONTINUE TO WORK WITH PATIENT DAILY. WE WILL CONTINUE WITH CURRENT PLAN OF CARE TODAY. OTHERWISE, WE PLAN TO FOLLOW UP WITH AM LABS AND CONTINUE TO MONITOR. TIME SPENT ON CLINICAL ASSESSMENT, REVIEWING LABS AND IMAGING, DECISION MAKING, AND DOCUMENTATION GREATER THAN 45 MINUTES. - Past Medical Family Social History Past Med/Fam/Surg Hx: No changes since H&P Allergies: Allergies No Known Allergies Allergy (Verified 07/21/23 15:03) - Review of Systems ROS: No change since H&P - Vital Signs and I&O's Vital Signs: Vital Signs Temperature 98.6 F Pulse Rate [Brachial] 62 Respiratory Rate 18 Blood Pressure [Left Arm] 131/66 O2 Sat by Pulse Oximetry 95 Intake and Output: Intake & Output 08/08/23 08/09/23 08/10/23 08/11/23 11:59 11:59 11:59 11:59 Intake Total 1150 / 1150 570 / 570 900 / 900 860 / 860 Balance 1150 / 1150 570 / 570 900 / 900 860 / 860 - Physical Exam Oriented: Normal Eyes: Normal Ear: Normal Nose: Normal Throat: Normal Respiratory: Generalized, Diminished Cardiovascular: Normal : Normal Auscultation: Bowel Sounds: Normal Palpation: Normal Tenderness: Normal Skin: Bruising Musculoskeletal: Normal Psychiatric: Normal Mood Description: Calm Affect: Normal Speech Pattern: Clear, Appropriate - Laboratory and Diagnostics Result Diagrams: 08/11/23 04:41 08/11/23 04:41 Labs: Laboratory WBC 4.5 X10^3/uL (3.6-10.0) 08/11/23 04:41 RBC 3.08 X10^6/uL (3.5-5.4) L 08/11/23 04:41 Hgb 9.3 g/dL (12.0-16.0) L 08/11/23 04:41 Hct 28.1 % (36.0-47.0) L 08/11/23 04:41 MCV 91.2 fL (80.0-100.0) 08/11/23 04:41 MCH 30.2 pg (27.0-34.0) 08/11/23 04:41 MCHC 33.2 g/dL (33.0-35.0) 08/11/23 04:41 RDW 15.6 % (11.6-16.5) 08/11/23 04:41 Plt Count 147 X10^3/uL (150.0-450.0) L 08/11/23 04:41 MPV 9.0 fL (7.4-11.0) 08/11/23 04:41 Neut % (Auto) 58.9 % (42.0-75.0) 08/11/23 04:41 Lymph % (Auto) 20.2 % (21.0-51.0) L 08/11/23 04:41 [place] % (Auto) 11.7 % (0.0-13.0) 08/11/23 04:41 Eos % (Auto) 7.8 % (0.9-2.9) H 08/11/23 04:41 Baso % (Auto) 1.4 % (0.2-1.0) H 08/11/23 04:41 Neut # (Auto) 2.6 x10^3/uL (2.2-4.8) 08/11/23 04:41 Lymph # (Auto) 0.9 X10^3/uL (1.3-2.9) L 08/11/23 04:41 [place] # (Auto) 0.5 x10^3/uL (0.3-0.8) 08/11/23 04:41 Eos # (Auto) 0.3 x10^3/uL (0.0-0.2) H 08/11/23 04:41 Baso # (Auto) 0.1 X10^3/uL (0.0-0.1) 08/11/23 04:41 Absolute Nucleated RBC 0.1 /100WBC 08/11/23 04:41 Sodium 141 mmol/L (136-145) 08/11/23 04:41 Corrected Sodium TNP 08/11/23 04:41 Potassium 4.1 mmol/L (3.5-5.1) 08/11/23 04:41 Chloride 109 mmol/L (98-107) H 08/11/23 04:41 Carbon Dioxide 23.8 mmol/L (21-32) 08/11/23 04:41 BUN 17 mg/dL (7-18) 08/11/23 04:41 Creatinine 0.77 mg/dL (0.55-1.02) 08/11/23 04:41 Est GFR (MDRD) Af Amer > 60 (>60) 08/11/23 04:41 Est GFR (MDRD) Non-Af > 60 (>60) 08/11/23 04:41 Glucose 88 mg/dL (65-99) 08/11/23 04:41 Calcium 8.3 mg/dL (8.5-10.1) L 08/11/23 04:41 Corrected Calcium 9.6 mg/dL (8.5-10.1) 08/11/23 04:41 Magnesium 2.0 mg/dL (2.0-2.9) 08/11/23 04:41 Total Bilirubin 0.50 mg/dL (0.2-1.0) 08/11/23 04:41 AST 20 Units/L (15-37) 08/11/23 04:41 ALT 15 Units/L (12-78) 08/11/23 04:41 Alkaline Phosphatase 67 Units/L (46-116) 08/11/23 04:41 Troponin I High Sens 10.7 ng/L (4.0-60.0) 08/04/23 11:55 Total Protein 5.9 g/dL (6.4-8.2) L 08/11/23 04:41 Albumin 2.4 g/dL (3.4-5.0) L 08/11/23 04:41 Globulin 3.5 g/dL (2.5-4.5) 08/11/23 04:41 Albumin/Globulin Ratio 0.7 Ratio (1.1-2.1) L 08/11/23 04:41 - Plan (1) Physical deconditioning Status: Acute Plan: PT/OT, LOVENOX 40MG SC DAILY, DUONEBS TID PRN, LIPITOR 10MG HS, PLAVIX 75MG HS, COLACE 200MG PO Q12H PRN, MEGACE 40MG BID, SEROQUEL 12.5MG HS, AND VALSARTAN 80MG DAILY. (2) Acute bronchitis Status: Acute Qualifiers: Bronchitis organism: unspecified organism (3) History of recent fall Status: Acute (4) Generalized weakness Status: Acute (5) Essential hypertension Status: Chronic (6) CAD (coronary artery disease) Status: Chronic Qualifiers: Coronary Disease-Associated Artery/Lesion type: unspecified vessel or lesion type [place] vs. transplanted heart: [place] heart Associated angina: without angina Qualified Code(s): I25.10 - Atherosclerotic heart disease of [place] coronary artery without angina pectoris (7) Dementia Status: Chronic Qualifiers: Dementia type: vascular dementia Dementia severity: mild Dementia behavioral or psychological symptom: unspecified whether behavioral, psychotic, or mood disturbance or anxiety Qualified Code(s): F01.A0 - Vascular dementia, mild, without behavioral disturbance, psychotic disturbance, mood disturbance, and anxiety (8) Dyslipidemia Status: Chronic
== END 2023-08-11 12:56 | disposition hospice, home (50) | DRG 203 ==
LOC: MED/SURG 16:00
PROVIDERS: ADMIT Internal Medicine; ATTEND Internal Medicine
DX: R29.6 Repeated falls; Z91.81 History of falling; E87.6 Hypokalemia; Z51.89 Encounter for other specified aftercare; E78.5 Hyperlipidemia, unspecified; M54.89 Other dorsalgia; I25.10 Atherosclerotic heart disease of native coronary artery without angina pectoris; R53.83 Other fatigue; U09.9 Post COVID-19 condition, unspecified; J20.8 Acute bronchitis due to other specified organisms; I10 Essential (primary) hypertension; E83.42 Hypomagnesemia; M79.672 Pain in left foot; F01.A0 Vascular dementia, mild, without behavioral disturbance, psychotic disturbance, mood disturbance, and anxiety